=== PATIENT | female | born 1990 | race Hispanic/Latino ===

== ENCOUNTER 2016-08-21 13:16 | Day surgery (SDC) | payer OTHER ==
[~2016-08-21] VITALS: Ht 152.4 cm; Wt 77.8 kg
[2016-08-21] VITALS (9 sets, daily range): BP systolic 113–124; BP diastolic 76–85; PULSE 85–98; RESP 12–22; O2SAT 93–100
[~2016-08-21 13:16] MED LIST: Lactated Ringer's 1,000 ML IV ONE; PRD5T PO
[2016-08-21] MEDS ORDERED: Ondansetron 2 mg/mL 2 mL Inj ONE (13:17)
[2016-08-21] MEDS ORDERED: Ketamine 10 mg/mL 20 mL Inj ONE (13:17)
[2016-08-21] MEDS ORDERED: Succinylcholine Chloride 20 mg/mL 5 mL Inj ONE (13:17)
[2016-08-21] MEDS ORDERED: Propofol 10,000 mCg/mL 20 mL Inj ONE (13:17)
[2016-08-21] MEDS ORDERED: Bupivacaine-MPF 0.5% 30 mL Inj INFILTRATE ONE (18:58)
[2016-08-21] MEDS ORDERED: HYDROcodone-APAP 5-325 mg Tablet PO PRN (19:40)
--- NOTE | 2016-08-21 19:46 | PCM.SURGPO ---
Immediate Operative Note Date of Surgery: Aug 21, 2016 Pre Operative Diagnosis Subcutaneous masses X2 Post Operative Diagnosis Subcutaneous masses X2 Procedure Excision of Subcutaneous masses from Right upper back and front of the chest Surgeon and Mail Handler Equipment Operator Surgeon: Oliver Moreira MD Assistants: Maite Wilkins MS3 Findings Hard Subcutaneous Masses2.5 cm in the back, 2 cm in the front Complications There were no periprocedural complications identified. Surgical Specimen Removed: Yes Specimen sent to Pathology: Yes Surgical Specimen description: Right upper back subcutaneous mass Anterior chest subcutaneous Mass Anesthetic Administered: GA Grafts, Implants: None Output, Estimated Blood Loss: 0 Blood Admin during surgery: No Oliver Moreira MD Aug 21, 2016 19:45
[2016-08-21] MEDS ORDERED: HYDR-4003 PO (19:49)
[2016-08-21] MEDS ORDERED: Lactated Ringer's 500 ML IV PRN (19:59)
[2016-08-21] MEDS ORDERED: Lactated Ringer's 1,000 ML IV SCH (19:59)
--- NOTE | 2016-08-21 19:59 | PCM.HPANE ---
Patient Data Surgeon Admitting Provider: Attending Provider:Oliver Moreira MD Primary Care Physician:Cale Boothe MD Other Provider: Reason for Visit Subcutaneous Mass Ht/WT & BMI Height (Feet): 5 Height (Inches): 0 Weight (Kilograms): 77.8 Body Mass Index 33.00 Allergies Coded Allergies: vancomycin (Verified Allergy, Intermediate, Rash,Itching,, 08/21/16) Past Anesthesia History Anesthesia History: Denies:: Anesthesia Reactions, Difficult Intubation, Fam Anesthesia Reaction Diabetes History Hx Diabetes?: No MRSA MRSA: No Medications Hypertension Medication: No Home Meds Incl Beta [place]: No Active Scripts Hydrocodone-Acetaminophen 5-325 mg 1 Each Tablet1 Tablet PO Q4 PRN For Mild Pain #20 TABLET Prov:Oliver Moreira MD 08/21/16 Reported Medications Prednisone (PredniSONE)5 Mg Tab5 Mg PO DAILY Ref 0 08/18/16 Discontinued Scripts Ciprofloxacin 500 Mg [id number] Mg PO BID #20 TABLET Prov:Mervin Arriaga MD 07/30/16 Azithromycin (Zithromax (Z-Edgardo))250 Mg [id number] Mg PO DIRECTED #6 TABLET Ref 0 Take two tablets by mouth on day 1, then take one tablet daily on days 2 through 5. Prov:Mervin Arriaga MD 07/30/16 History History of ENT Problems?: No HEENT History: Denies:: Cataracts Difficult Intubation Dysphagia Glaucoma Hearing Problem Sinus Problem TMJ Hx of Heart Problems?: Yes Cardiovascular History: Positive for:: Cardiac Surgery (has IVC filter ) Irregular Heartbeat (tachycardia) Denies:: Chest Pain Congestive Heart Failure Edema Heart Murmur (cannot recall) Hypertension Pacemaker Thrombophlebitis Other Cardiac History: IVC filter placed 2007- unable to be removed Hx of Respiratory Problem?: No Respiratory History: Denies:: Asthma COPD Dyspnea Emphysema Oxygen Administration Pneumonia Tuberculosis Use of C-PAP Machine Hx Neurologic Problems?: No Neurological History: Denies:: CVA Dizziness Headaches Multiple Sclerosis Parkinson's Disease Seizures Hx of GI Problems?: Yes Gastrointestinal History: Denies:: Diverticulitis Gastrointestinal Bleeding Heartburn Hepatitis Hiatal Hernia Rectal Bleeding Other GI Pertinent History: total colectomy with ileal pouch, hx of gardners disease Hx of Problems?: No Genitourinary History: Denies:: Kidney Stones Urinary Tract Infection Female Hx: Denies:: Currently Endometriosis Pelvic Inflammatory Problems with Breasts? Skin History: Positive for:: History Skin Disorders? (sub q mass x 2 - current admission problem) Denies:: Pressure Ulcers Hx Musculoskeletal Problems?: No Musculoskeletal History: Denies:: Fibromyalgia Joint Replacement Musculoskeletal Trauma Myasthenia Gravis Osteoarthritis Rheumatoid Arthritis Hx of Psycho/Social Problems?: No Psycho Social History: Positive for:: Anxiety Hx Depression Denies:: Bipolar Disorder Suicide Attempt Hx Surgeries?: Yes (colectomy- with ileal pouch, desmoid tumor resection- hysterectomy) Hx Any Other Health Problems?: Yes Other History: Positive for:: Hospitalization (Pain, tumor, , colectomy, N/V) Denies:: Cancer Endocrine Disease Thyroid Disease History Blood Transfusions: Positive for:: Blood Transfusions Denies:: Blood Transfuse Reaction Hx Diabetes: No Hx Alcohol Use: YesAlcoholic Drinks Per Day: on weekends- 2 drinks weekHx Substance Use: No Smoking Status: Current Every Day Smoker Have You Smoked inLast 12 mo: No Stop/Bang S-Snoring: Do You Snore Loudly: No T-Tired: feel tired, fatigued: No O-Obsered: Observed not breath: No P-Blood Pressure: treated: No B- Body Mass Index > 35 kg/m2: No A- Age over 50: No N- Neck Large Circumference: No G- Gender Male: No LUÍS Total Score: 0 Risk Assessment Category Category 1A: Patient has history of documented sleep apnea, and HAS NOT received any narcotic, sedative or anesthesia administration during this stay. Category 1B: Patient has history of documented sleep apnea, and HAS received any narcotic , sedative or anesthesia administration during this stay Category 2: Patient has SUSPECTED Obstructive Sleep Apnea, and HAS received any narcotic , sedative or anesthesia administration during this stay. Category 3: Patient has SUSPECTED Obstructive Sleep Apnea and HAS NOT received narcotic, sedative or anesthesia administration during this stay. Category 4: Outpatient in Procedural Areas with known sleep apnea or who screen positive for High Risk via the STOP/BANG questionnaire. Exam Exam Vital Signs Vital Signs Date Time Temp Pulse Resp B/P Pulse Ox O2 Delivery O2 Flow Rate FiO2 08/21/16 19:54 98 14 124/79 100 Simple Mask 8 08/21/16 19:46 36.4 88 12 115/79 100 Simple Mask 8 08/21/16 13:41 36.6 95 16 118/79 96 Room Air Meds/Labs/Diagnostics Admission Meds Current Medications Lactated Ringer's (Lr) 1,000 ml @ 120 mls/hr Q8H20M ONCE IV Last administered on 08/21/16 13:37; Start 08/21/16 at 05:00; Stop 08/21/16 at 13:19; Status DC Bupivacaine HCl (Sensorcaine-MPF 0.5% Inj) 30 ml STK-MED ONCE INFILTRATE Last administered on 08/21/16 18:58; Start 08/21/16 at 18:58; Stop 08/21/16 at 19:04 ; Status DC Plan Impression Patient chart reviewed, patient interviewed and anesthestic plan with risks, benefits, and alternatives discussed, and informed consent obtained. NPO Status: 08/20/16 AT 1900 Daren Sheriff MD Aug 21, 2016 19:59
[2016-08-21] MEDS ORDERED: HYDROmorphone 1 mg/mL Inj IVPUSH PRN (20:00)
[2016-08-21] MEDS ORDERED: Ondansetron 2 mg/mL 2 mL Inj IVPUSH PRN (20:00)
[2016-08-21] MEDS ORDERED: EPHEDrine Sulfate 50 mg/mL Inj IVPUSH PRN (20:00)
[2016-08-21] MEDS ORDERED: Phenylephrine 10,000 mCg/mL Inj IVPUSH PRN (20:00)
[2016-08-21] MEDS ORDERED: fentaNYL-PF 50 mCg/mL 2 mL Inj IVPUSH PRN (20:00)
[2016-08-21] MEDS ORDERED: Dexamethasone 4 mg/mL Inj IVPUSH PRN (20:00)
[2016-08-21] MEDS ORDERED: MetoCLOpramide 5 mg/mL 2 mL Inj IVPUSH PRN (20:00)
--- NOTE | 2016-08-21 21:50 | OP ---
[address] [address] OPERATIVE REPORT PATIENT: GORGE ACEVEDO : 1990 MR#: [id number] ADMIT: 08/21/2016 JOB ID: [id number] DATE OF SURGERY: 08/21/2016 SURGEON: Oliver Moreira MD PREOPERATIVE DIAGNOSIS(ES): Subcutaneous masses of the upper back and anterior chest. POSTOPERATIVE DIAGNOSIS(ES): Subcutaneous masses of the upper back and anterior chest. PROCEDURE PERFORMED: Excision of subcutaneous masses of the right upper back and midline chest. TEXTILE BAG SEWER: BRYANT Sinha. 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 She was diagnosed with acute febrile neutrophilic dermatosis in May 2016 leading to a workup looking for a malignancy. Dr. Jeff sent her to me with the finding of subcutaneous mass on the right posterior chest wall found on the CT. She was also feeling similar on the front of the chest between her breasts. After discussing the risks, benefits, and alternatives, she is here today for excision of both these masses under general anesthesia. She 1st underwent smooth induction of general anesthesia, she was then placed in a left lateral decubitus position and the right upper back was prepped and draped in the usual sterile fashion. Surgical time-out was undertaken using safety checklist, and all were in agreement. I then infiltrated the skin over the palpable subcutaneous mass which was marked preoperatively and divided the skin sharply and identified the subcutaneous mass and excised it with a margin of fat all around it. This was approximately 2.5 cm in size. After the mass was excised, it was oriented to marked stitch on the superior aspect and then the skin was closed in layers of 3-0 Vicryl followed by 4-0 Monocryl. Steri-Strips and sterile dressing were applied. The patient was then placed in a supine position and the anterior chest was prepped and draped in the usual sterile fashion. Then, I again infiltrated this site with 0.5% bupivacaine and opened the skin sharply and again dissected this 2 cm subcutaneous mass sharply with the margin of fat surrounding it and again marked it, orienting the stitch on its superior aspect and closed the skin with layers of 3-0 Vicryl followed by 4-0 Monocryl. Again, Steri-Strips and sterile dressing were applied. Patient was recovered from anesthesia and was taken to the recovery room in stable condition.
--- NOTE | 2016-08-22 15:28 | PCM.ANEP1 ---
Post Anesthesia Phase 1 PACU Phase 1 Assessment Date of Service: Aug 21, 2016 Anesthetic Administered: GA Level of Alertness: Sleepy, easy to arouse MOTA's with Equal Strength: Yes Pain: No Nausea or Vomiting: No Airway Device: LMA Oxygen Delivery: Simple Mask Lungs: Clear to Auscultation Daren Sheriff MD Aug 22, 2016 15:28
--- NOTE | 2016-08-22 15:29 | PCM.ANEP2 ---
Post Anesthesia Evaluation ASA/CMS Post Anesthesia VS in Patient's Normal Range?: Yes Resp Stable; Airway Patent?: Yes CV Function & Hydration Stable: Yes Mental Status Recovered?: Yes Pain control Satisfactory?: Yes N/V Control Satisfactory?: Yes Daren Sheriff MD Aug 22, 2016 15:29
--- NOTE | 2016-08-23 14:12 | PATH ---
SURGICAL PATHOLOGY Attending Physician:Oliver Moreira MD CASE STATUS: Signed Out PATIENT NAME: GORGE ACEVEDO PID: [id number] : 1990 DATE COLLECTED:08/21/2016 00:00 SPECIMEN: 1: Mass, NOS 2: Mass, NOS CLINICAL HISTORY: A: RIGHT UPPER BACK SUBCUTANEOUS MASS-STITCH SUPERIOR B: ANTERIOR CHEST SUBCUTANEOUS MASS-STITCH SUPERIOR FINAL DIAGNOSIS: 1.RIGHT UPPER BACK SUBCUTANEOUS MASS: BENIGN EPIDERMAL CYST, NEGATIVE FOR ATYPIA. 2.ANTERIOR CHEST SUBCUTANEOUS MASS: BENIGN EPIDERMAL CYST, NEGATIVE FOR ATYPIA. ICD10 CODE L72.0 GROSS DESCRIPTION: The specimens are received in formalin, labeled with the patient's name, and sublabeled as the following: (1) right upper back subcutaneous mass; (2) anterior chest subcutaneous Mass. (1) The specimen consists of a cyst (1.9 x 1.7 x 1.7 cm) with a minimal amount of attached adipose tissue. A blue suture indicates the superior margin. The cyst is bright white and contains yellow-gao soft paste-like material. The lining is flat with no excrescences identified. The wall is up to 0.3 cm thick. Ink code: black-superior; orange-inferior. Section code: (1A) cyst, serially sectioned, service representative. (2) The specimen consists of a cyst (1.5 x 1.5 x 1.3 cm) with a scant amount of attached adipose tissue. A blue suture indicates the superior margin. The cyst is bright white and contains man-white soft paste-like material. The lining is flat with no excrescences identified. The wall is up to 0.1 cm thick. Ink code: black-superior; orange-inferior. Section code: (2A) cyst, serially sectioned, service representative. 08/22/16 JM MICRO DESCRIPTION: See diagnosis. ICD-9 CODES: CPT CODES: 1: 80264 2: 58560 Electronically Signed Out Kevin Spicer MD [facility] [address] [place] [address] Technical component performed at [facility] [address], [place], [address]
[2016-10-18] MEDS ORDERED: PROM25TA14 PO (16:38)
[2016-10-18] MEDS ORDERED: FLUC100T4 PO (16:38)
[2016-10-18] MEDS ORDERED: OXYC1TAB24 PO (16:38)
[2016-10-18] MEDS ORDERED: PHEN-684 PO (16:38)
== END 2016-08-21 23:59 | disposition home or self-care (01) ==
LOC: SAS 13:16
PROVIDERS: ATTEND Student in an Organized Health Care Education/Training Program
DX: L72.0 Epidermal cyst (principal); D69.2 Other nonthrombocytopenic purpura; Z86.711 Personal history of pulmonary embolism; Z86.718 Personal history of other venous thrombosis and embolism; E66.9 Obesity, unspecified; F17.210 Nicotine dependence, cigarettes, uncomplicated; Z79.52 Long term (current) use of systemic steroids
CPT/HCPCS: 21555; 21930; J0330; J2405; J7120

== ENCOUNTER 2016-09-01 18:28 | Inpatient (IN) | payer OTHER ==
[~2016-09-01] VITALS: Ht 152.4 cm; Wt 80.6 kg
[~2016-09-01 18:28] MED LIST changes: +HYDR-4003 PO; -Lactated Ringer's 1,000 ML IV ONE
[2016-09-01 18:31] VITALS: BP 125/84; PULSE 115; RESP 22; O2SAT 96
--- NOTE | 2016-09-01 18:34 | ED.REPORT ---
HPI-Back Pain Under 40 Date of Service Sep 01, 2016 ED Provider: Conrado Palacio DO A 25 year old female with a history of Shepherd's syndrome, Sweet's syndrome, nephrostomy tube, recent subcutaneous mass removal, and multiple other medical concerns presents to the ED complaining of right flank pain that radiates to her back, right abdomen, and down her right leg. This began this morning and has continued intermittently since. The pain was severe enough at one point that she felt unable to move. She was also experiencing a fever earlier today of 101.1 degrees, which she treated with Tylenol. The pt has been trying to stay hydrated, but has been unable to urinate or have a bowel movement since this morning. Nursing Notes Stated Complaint: R SIDE ABD PAIN Chief Complaint: Back Pain or Injury Nursing Notes Reviewed: Yes Allergies: Coded Allergies: vancomycin (Verified Allergy, Intermediate, Rash,Itching,, 08/21/16) Scheduled Ciprofloxacin (Ciprofloxacin) 500 Mg Tablet 500 MG PO BID Prednisone (PredniSONE) 5 Mg Tab 5 MG PO DAILY Tamsulosin (Flomax) 0.4 Mg Capsule 0.4 MG PO DAILY Scheduled PRN Hydrocodone-Acetaminophen 5-325 mg (Hydrocodone-Acetaminophen 5-325 mg) 1 Each Tablet 1 TABLET PO Q4 PRN PRN For Mild Pain Ibuprofen (Ibuprofen) 800 Mg Tablet 800 MG PO TID PRN PRN For Pain oxyCODONE-Acetaminophen 5-325 mg (oxyCODONE-Acetaminophen 5-325 mg) 1 Each Tablet 1-2 TAB PO Q6H PRN PRN For Pain General Time Seen by MD: 18:34 Chief Complaint Flank pain right Hx Obtained From: Patient Arrived By: Walk-in Sudden in Onset?: Yes Onset Occurred: 9 - 12 hours ago Symptom Duration: Intermittent Recent Healthcare: Recent doctor visit, Recent hospitalization Similar Sx Previous: No Past Medical History Past Medical History 1. 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 2. 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 4. On prior notes it is noted that the patient has a history of hypothyroidism, although the patient currently denies this diagnosis and said she is not on any thyroid replacement medication. 5. Status post hysterectomy. 6. Status post total colectomy with ileal pouch (as noted in the HPI). 7. History of exploratory laparotomy following intra-abdominal hemorrhage. Past Surgical History as above Smoking History Current Every Day Smoker Social History Alcohol Use: Denies alcohol use Other Social History: Good social support, Local resident Ambulatory Status Independent Review of Systems Review of Systems Note: decreased urine and bowel output Constitutional: Reports: Fever Respiratory: Denies: Non-productive cough, Shortness of breath Cardiovascular: Denies: Chest pain GI: Reports: Abdominal pain Female: Reports: Flank pain Musculoskeletal: Reports: Back pain, Extremity pain, Denies: Neck pain Complete sys rev & neg: except as marked. Physical Exam Initial Vital Signs Vital Signs (First) Date Time Temp Pulse Resp B/P Pulse Ox O2 Delivery O2 Flow Rate FiO2 09/01/16 18:31 36.4 115 22 125/84 96 09/01/16 18:55 Room Air Initial VS: Reviewed General/Constitutional: Awake, Alert Back: Atraumatic, Full range of motion right sided CVAT to palpation and percussion Neurologic: Oriented X3, Speech NL, No motor deficits, No sensory deficits Neck: Atraumatic, Supple, Full range of motion Respiratory / Chest: Atraumatic, Breath sounds NL, Breath sounds = bilat, No respiratory distress Cardiovascular: Heart rate NL, Regular rhythm, Heart sounds NL Abdomen: Atraumatic, Soft right sided tenderness to palpation no rebound or guarding Lower Extremity / Pelvis / MS: Atraumatic, Full range of motion Head / Eyes: Atraumatic, Normocephalic, PERRL, EOMI ENT: Atraumatic, Airway patent, Mucous membranes moist Upper Extremity / MS: Atraumatic, Full range of motion Skin: Atraumatic, Color NL, No rash, Warm, Dry surgical scars healing well Psychiatric: Affect NL, Mood NL Interpretation & Diagnostics Interpretation & Diagnostics: Abdomen CT: IMPRESSION: 1. Proximal right ureteral calculus, associated with moderate right hydronephrosis. Dictated by: Hoda Teague M.D. on 09/01/2016 at 20:48 Approved by: Hoda Teague M.D. on 09/01/2016 at 20:52 Lab Results Interpretation Result Diagram: 09/01/16 1850 09/01/16 1850 Test 09/01/16 18:50 09/01/16 20:35 White Blood Count 8.8th/mm3 (3.8-10.1) Red Blood Count 4.76mil/mm3 (3.90-5.20) Hemoglobin 14.9g/dL (12.0-15.6) Hematocrit 43.3% (35.0-46.0) Mean Corpuscular Volume 91.0fL (81-100) Mean Corpuscular Hemoglobin 31.3pg (27.0-35.0) Mean Corpuscular Hemoglobin Concent 34.4% (32.0-37.0) Red Cell Distribution Width 12.4% (12.3-15.4) Platelet Count 152bil/L (150-400) Neutrophils (%) (Auto) 93.2% (40-74) Lymphocytes (%) (Auto) 5.4% (14-46) Monocytes (%) (Auto) 0.6% (4-12) Eosinophils (%) (Auto) 0.3% (0-5) Basophils (%) (Auto) 0.2% (0-3) Sodium Level 139mEq/L (134-144) Potassium Level 3.6mEq/L (3.5-5.2) Chloride Level 103mEq/L (97-108) Carbon Dioxide Level 23mmol/L (18-29) Blood Urea Nitrogen 14mg/dL (6-20) Creatinine 0.89mg/dL (0.57-1.00) Estimat Glomerular Filtration Rate 109mL/min (>59) Glucose Level 112mg/dL (60-99) Lactic Acid Level 1.4mmol/L (0.4-2.0) Calcium Level 9.0mg/dL (8.5-10.1) Magnesium Level 1.8mg/dL (1.6-2.6) Total Bilirubin 0.9mg/dL (0.0-1.2) Aspartate Amino Transf (AST/SGOT) 20U/L (0-50) Alanine Aminotransferase (ALT/SGPT) 19U/L (0-32) Alkaline Phosphatase 88U/L (25-150) Total Protein 7.2g/dL (6.4-8.4) Albumin 4.3g/dL (3.4-5.0) Lipase 25U/L (13-60) Urine Color Yellow (YELLOW) Urine Appearance Hazy (CLEAR,HAZY) Urine pH 5.5 (5.0-8.0) Urine Specific [place] 1.025 (1.003-1.035) Urine Protein Negativemg/dL (NEG,TRACE) Urine Glucose (UA) Negativemg/dL (NEGATIVE) Urine Ketones Negativemg/dL (NEGATIVE) Urine Occult Blood Large (NEGATIVE) Urine Nitrite Positive (NEGATIVE) Urine Bilirubin Negative (NEGATIVE) Urine Urobilinogen Normalmg/dL (NORMAL) Urine Leukocyte Esterase Small (NEGATIVE) Urine RBC 3-10/hpf (0-2) Urine WBC >50/hpf (0-5) Urine Epithelial Cells Many/hpf (NONE-MOD) Urine Crystals None seen (NONE SEEN) Urine Bacteria Many/hpf (NONE-FEW) Urine Hyaline Casts None/lpf (NONE) Urine Granular Casts None seen (NONE SEEN) Urine Waxy Casts None seen (NONE SEEN) Urine Red Blood Cell Casts None seen (NONE SEEN) Urine White Blood Cell Casts None seen (NONE SEEN) Urine Mucus None seen (None Seen) Urine Trichomonas None seen (NONE SEEN) Urine Yeast None (NONE SEEN) Urinalysis Comment None Urine Culture Reflexed Indicated Re-Eval/Medical Decision Med Decision/Clinical Course 25-year-old female with a history of Shepherd syndrome and sweets syndrome presents with right-sided flank pain and right-sided groin pain. She admits to a temperature of 101.5 earlier today but has been afebrile here. Her white blood cell count is normal. Her vitals other than heart rate have been normal. She looks well clinically. She is given 1 L of normal saline while she was here and we offered a second liter but she would like to do this at home by increasing her fluid intake. I discussed her case with Dr. Rodriguez with urology and she feels she does not have a septic stone spite having dirty urine. He recommends beginning empiric antibiotic coverage with Cipro 500 mg twice a day which was started here in the emergency department. He also started Flomax and have treated her with NSAIDs and Dilaudid for pain. She is discharged home with a supply of Percocet, ibuprofen, Flomax, and Cipro. She will follow up with Dr. Rodriguez next week. I let her know there is a 50/50% chance of the stone will pass statistically. Gonzales that if she develops signs of sepsis/infection including fevers or chills she should return to the ER. She is in agreement with this plan. All questions were answered with her and her mother. Source of Hx: Old records Re-Evaluation/Progress #1: Time of Eval: 20:49 Patient Status: Condition improved Re-Evaluation/Progress Note: Pt rechecked, who is resting comfortably. She is informed of her lab results and the plan to wait for urine and scan results. Pt agrees with the plan. Re-Evaluation/Progress #2: Time of Eval: 21:03 Patient Status: Condition improved Re-Evaluation/Progress Note: Pt rechecked, who is comfortable. She is informed of her CT results and diagnosis. Re-Evaluation/Progress #3: Time of Eval: 21:24 Patient Status: Condition improved Re-Evaluation/Progress Note: Pt rechecked and informed of consultation with urology. The plan for discharge was discussed. The pt understands and agrees with the plan. All questions are addressed at this time. Consultation : Referral / Consult Name: Gulshan Rodriguez MD Consulted With: Urology Call Returned at: 21:18 Staff Air Tactical Officer: Agrees with eval, Agrees with plan Note: Consulted with Dr. Rodriguez, urology, regarding pt's case. Dr. Rodriguez does not believe that the stone is infected due to normal vitals. He recommends discharge with Cipro. Counseled Regarding: Diagnosis, Lab results, Need for follow-up, When/why to return to ED Discharge & Departure Impression: Primary Impression: Ureterolithiasis Additional Impression: UTI (urinary tract infection) Urinary tract infection type: acute cystitis Hematuria presence: with hematuria Qualified Code: N30.01 - Acute cystitis with hematuria Disposition: Home All VS Reviewed: Yes Condition: Stable Additional Instructions: Thank you for entrusting us with your care today. Your CT indicates that you have a 5 mm kidney stone on the right side. This stone should pass on its own. Take Flomax daily and take Cipro twice daily as prescribed. Take Percocet and ibuprofen as directed for severe pain. Do not drive, drink alcohol, or consume acetaminophen while taking the Percocet. Follow up with Dr. Rodriguez, urology, next week for further evaluation. Call on Sunday to arrange this appointment. Return to the emergency department if you develop any new or concerning symptoms including fever or chills. Referrals: Cale Boothe MD (PCP) Gulshan Rodriguez MD Scriblily Attestation Portions of this note were transcribed by Joel Baker I, Dr. Palacio personally performed the history, physical exam and medical decision-making; I reviewed and confirmed the accuracy of the information in the transcribed note. Signed by: Wellington Kerr, 09/01/16 and 20:58. copies to: Gulshan Rodriguez MD; Cale Boothe MD, Gary R DO Sep 01, 2016 18:34 JOEL BAKER Sep 01, 2016 18:48
[2016-09-01] MEDS ORDERED: 0.9% Sodium Chloride 1,000 ML IV ONE ×3 (18:46→22:44)
[2016-09-01] MEDS ORDERED: Iohexol 300 mg/mL 30 mL Inj PO ONE (18:50)
[2016-09-01] MEDS ORDERED: Ondansetron 2 mg/mL 2 mL Inj IVPUSH PRN (18:50)
[2016-09-01] MEDS ORDERED: HYDROmorphone 1 mg/mL Inj IVPUSH PRN (18:50)
[2016-09-01 18:55] VITALS: BP 125/84; PULSE 115; RESP 22; O2SAT 96
[2016-09-01 19:03] VITALS: BP 124/75; PULSE 121; RESP 19; O2SAT 99
[2016-09-01 19:07] LABS: BASOPHILS % (AUTO) 0.2 % (0-3); EOSINOPHILS % (AUTO) 0.3 % (0-5); MONOCYTES % (AUTO) 0.6 % (4-12); Mean Corpuscular Hemoglobin 31.3 pg (27.0-35.0); NEUTROPHILS % (AUTO) 93.2 % (40-74); Platelet Count 152 bil/L (150-400)
[2016-09-01 19:36] LABS: Magnesium 1.8 mg/dL (1.6-2.6)
[2016-09-01 20:53] LABS: APPEARANCE,URINE HAZY (CLEAR,HAZY); COLOR,URINE YELLOW (YELLOW); OCCULT BLOOD,URINE LARGE (NEGATIVE); PH,URINE 5.5 (5.0-8.0); UROBILINOGEN,URINE NORMAL (NORMAL)
--- NOTE | 2016-09-01 20:53 | DRSVH ---
PROCEDURE: CT ABDOMEN AND PELVIS WITH CONTRAST ([id number]) INDICATIONS: right sided flank/abdominal pain TECHNIQUE: After the administration of oral and intravenous contrast, 5 mm thick sections acquired from the diap hragms to the symphysis. 5 mm thick coronal and sagittal reformats were performed. For radiation do se reduction, the following was used: automated exposure control, adjustment of mA and/or kV accordi ng to patient size. COMPARISON: [facility], CT, CT NECK CHEST ABD PELVIS W CON, 07/05/2016, 15:21. FINDINGS: Image quality: Excellent. ABDOMEN: Lung bases: Lung bases are clear. Heart size is normal. Solid organs: Liver and spleen are normal in size and enhancement. Gallbladder is within normal ann its. Biliary system is non-dilated. Pancreas enhances normally. No adrenal nodules. Left kidney is normal in size and enhancement. There is mild right renal enlargement and moderate right hydronephro sis. Delayed right renal enhancement is present. There is a 5 mm diameter calculus within the proxima l right ureter, with Hounsfield units of 75. Peritoneum and bowel: Stomach, small bowel, and colon loops are normal in caliber and wall thickness . No free fluid or air. Right lower quadrant ostomy is present. Nodes and vessels: No retroperitoneal or mesenteric adenopathy. Aorta and inferior vena cava are no rmal in caliber. A suprarenal IVC filter is present. Miscellaneous: No ventral hernias. PELVIS: Genitourinary: Bladder wall thickness is normal. Miscellaneous: No inguinal hernias or adenopathy. Bones: No suspicious bony lesions. Benign-appearing sclerotic density within the left sacrum is unch anged. No vertebral body compression fractures. IMPRESSION: 1. Proximal right ureteral calculus, associated with moderate right hydronephrosis. Dictated by: Hoda Teague M.D. on 09/01/2016 at 20:48 Approved by: Hoda Teague M.D. on 09/01/2016 at 20:52
[2016-09-01] MEDS ORDERED: Trimethoprim-Sulfa 160 mg-800 mg Tablet PO ONE (21:15)
[2016-09-01] MEDS ORDERED: _oxyCODONE/APAP 5-325 mg Tablet PO PRN (21:35)
[2016-09-01] MEDS ORDERED: IBUP800T28 PO (21:36)
[2016-09-01] MEDS ORDERED: CIPR-198 PO (21:36)
[2016-09-01] MEDS ORDERED: OXYC1TAB24 PO (21:36)
[2016-09-01] MEDS ORDERED: TAMS0.4C98 PO (21:36)
[2016-09-01] MEDS ORDERED: LORazepam 0.5 mg Tablet PO ONE (21:40)
[2016-09-01] MEDS ORDERED: oxyCODONE-Acetamin 10-325 mg Tablet PO ONE (21:40)
[2016-09-01 22:39] VITALS: BP 133/90; PULSE 130; RESP 16; O2SAT 95
[2016-09-01] MEDS ORDERED: cefTRIAXone Inj 1,000 MG, Lidocaine PF 1% Inj 2.1 ML in Syringe 0 EACH IM ONE (22:45)
[2016-09-01] MEDS ORDERED: cefTRIAXone Inj 1,000 MG in Dextrose 5% Minibag Plus 50 ML IV ONE (23:05)
[2016-09-01] MEDS ORDERED: Alum-Mag Hydrox-Simeth 30 mL Suspension PO PRN (23:05)
[2016-09-01] MEDS ORDERED: Polyethylene Glycol (PEG) 17 Gm Powder PO PRN (23:05)
--- NOTE | 2016-09-01 23:48 | PCM.HPMED ---
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 Patient states that over the past 1-2 months she has had intermittent right sided flank pain. Immediately prior to presentation patient had worsening of right sided flank pain rated as 10+/10 searing pain that radiated to the navel area on the right. CT scan was completed with results of right side ureteral calculus with moderate hydronephrosis. Urology was consulted with plans to treat as an outpatient however before discharge from ED patient had elevated temperature and elevation in heart rate prompting admission with urology consult. ROS positive for lightheadedness, dizziness, right-sided flank pain, temperature prior to presentation of 102F a/w rigors and chills. Review of Systems: complete review of systems obtained. positive as per HPI otherwise negative Allergies Coded Allergies: vancomycin (Verified Allergy, Intermediate, Rash,Itching,, 09/02/16) Home Medications Prednisone, 5 mg daily. Discontinued a week ago. 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 S/p total colectomy with ileal pouch Exploratory laparotomy following intra-abdominal hemorrhage. Family History no family history of nephrolithiasis Social History Hx Alcohol Use: Yes Alcoholic Drinks Per Day: Occasionally Hx Substance Use: No Hx Tobacco Use: No Smoking Status: Current Every Day Smoker Exam Vital Signs Vital Sign - Last Date Time Temp Pulse Resp B/P Pulse Ox O2 Delivery O2 Flow Rate FiO2 09/01/16 22:39 39.1 130 16 133/90 95 Room Air Exam General: Alert, Oriented X3, Cooperative, No acute Distress. Family at bedside Eyes: PERRLA, Scleral Anicteric Mouth: Mouth Normal, Mucous Membranes Moist/[place]. Neck: Supple, no Thyromegaly, trachea central. Chest & Lungs: Clear to auscultation & percussion, No adventitious breath sounds, no crackles, no wheeze Cardiovascular: Normal S1, Normal S2, No Murmurs/Rubs/Gallops, Tach/ reg Rhythm , (No JVD, no edema) Pulses: Radial (present and equal), Dorsalis Pedi (present and equal) Abdomen: Soft, Non-tender, Non-distended, Normoactive bowel tones. Ostomy in place. CVA tenderness right Musculoskeletal: Unremarkable. Normal range of motion, no swollen or erythematous joints Extremities: no edema, no cyanosis, no clubbing. Skin: diffuse circular erythematous patches . Warm and dry, no erythematous areas Neurological: Grossly neurologically intact, has generalized weakness, Normal Speech, Sensation Intact Lymphatic: Lymph nodes Cervical and Axillary not palpable. Lab and Diagnostics Result Diagram: [id number]/[id number] X-Rays, CTs and MRIs Patient Name: GORGE ACEVEDO MR#: [id number] [place] [facility] [place] Phys: Conrado Palacio DO Date of Service: 09/01/16 184 PROCEDURE: CT ABDOMEN AND PELVIS WITH CONTRAST ([id number]) INDICATIONS: right sided flank/abdominal pain TECHNIQUE: After the administration of oral and intravenous contrast, 5 mm thick sections acquired from the diaphragms to the symphysis. 5 mm thick coronal and sagittal reformats were performed. For radiation dose reduction, the following was used : automated exposure control, adjustment of mA and/or kV according to patient size. COMPARISON: [facility], CT, CT NECK CHEST ABD PELVIS W CON, 2015, 15:21. FINDINGS: Image quality: Excellent. ABDOMEN: Lung bases: Lung bases are clear. Heart size is normal. Solid organs: Liver and spleen are normal in size and enhancement. Gallbladder is within normal limits. Biliary system is non-dilated. Pancreas enhances normally. No adrenal nodules. Left kidney is normal in size and enhancement. There is mild right renal enlargement and moderate right hydronephrosis. Delayed right renal enhancement is present. There is a 5 mm diameter calculus within the proximal right ureter, with Hounsfield units of 75. Peritoneum and bowel: Stomach, small bowel, and colon loops are normal in caliber and wall thickness. No free fluid or air. Right lower quadrant ostomy is present. Nodes and vessels: No retroperitoneal or mesenteric adenopathy. Aorta and inferior vena cava are normal in caliber. A suprarenal IVC filter is present. Miscellaneous: No ventral hernias. PELVIS: Genitourinary: Bladder wall thickness is normal. Miscellaneous: No inguinal hernias or adenopathy. Bones: No suspicious bony lesions. Benign-appearing sclerotic density within the left sacrum is unchanged. No vertebral body compression fractures. IMPRESSION: 1. Proximal right ureteral calculus, associated with moderate right hydronephrosis. Dictated by: Hoda Teague M.D. on 09/01/2016 at 20:48 Approved by: Hoda Teague M.D. 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 Sepsis, acute, POA -WBC <12, HR>90, T>38 -secondary to urine source -Tx as below Nephrolithiasis, septic stone, acute, POA -CT scan with stone located in right ureter -ceftriaxone given in ED, cont -urology was consulted, possible stent placement in am -NPO at midnight, mIVF, bolus PRN Elevated blood glucose, acute -no history of diabetes -check hgbA1c Sweets syndrome, chronic -management as per outpatient Shepherd syndrome, chronic -management as per outpatient Lilian Nguyen DO Sep 01, 2016 23:47
[2016-09-02] VITALS (17 sets, daily range): BP systolic 103–123; BP diastolic 68–84; PULSE 100–137; RESP 17–23; O2SAT 94–98
[2016-09-02] MEDS ORDERED: Heparin 5,000 Unit/mL Inj SUBQ SCH (00:30)
[2016-09-02] MEDS: HYDROmorphone 0.5 mg/0.5 mL iSecure Syringe IVPUSH PRN ×7 (00:58→20:01)
[2016-09-02] MEDS: 0.9% Sodium Chloride 1,000 ML IV SCH ×4 (00:58→21:57)
[2016-09-02] MEDS: Sodium Chloride LOK Flush 10 mL Syringe IVFLUSH SCH ×3 (00:58→16:28)
--- NOTE | 2016-09-02 01:16 | NUR ---
Admit Note Pt alert and oriented x3. Pt able to provide H&P answers during admissions. Oriented to room, use of call light and plan of care at this time.
--- NOTE | 2016-09-02 05:14 | NUR ---
Pain Pt oriented x3. Aware of NPO for procedure today. Dilaudid given for right back/flank pain with effectiveness noted/reported. Urine strained without any calculus noted.
[2016-09-02 07:16] LABS: BASOPHILS % (AUTO) 0.1 % (0-3); EOSINOPHILS % (AUTO) 0.2 % (0-5); MONOCYTES % (AUTO) 1.8 % (4-12); Mean Corpuscular Hemoglobin 30.6 pg (27.0-35.0); Mean Corpuscular Volume 91.5 fL (81-100); NEUTROPHILS % (AUTO) 94.1 % (40-74); Platelet Count 130 bil/L (150-400)
[2016-09-02] MEDS ORDERED: cefTRIAXone Inj 1,000 MG in Dextrose 5% Minibag Plus 50 ML IV ONE (07:25)
[2016-09-02] MEDS: Heparin 5,000 Unit/mL Inj SUBQ SCH ×2 (10:06→16:28)
[2016-09-02] MEDS ORDERED: Lactated Ringer's 1,000 ML IV ONE (10:46)
[2016-09-02] MEDS ORDERED: Acetaminophen IV 1,000 MG in IV Premix 1 EACH IV ONE (11:10)
[2016-09-02] MEDS ORDERED: HYDROmorphone 0.5 mg/0.5 mL iSecure Syringe IVPUSH ONE (11:10)
[2016-09-02] MEDS ORDERED: Lactated Ringer's 1,000 ML IV SCH (11:40)
[2016-09-02] MEDS ORDERED: HYDROmorphone 1 mg/mL Inj IVPUSH PRN (11:40)
[2016-09-02] MEDS ORDERED: fentaNYL-PF 50 mCg/mL 2 mL Inj IVPUSH PRN (11:40)
[2016-09-02] MEDS ORDERED: Dexamethasone 4 mg/mL Inj IVPUSH PRN (11:40)
[2016-09-02] MEDS ORDERED: Lactated Ringer's 500 ML IV PRN (11:40)
[2016-09-02] MEDS ORDERED: MetoCLOpramide 5 mg/mL 2 mL Inj IVPUSH PRN (11:40)
[2016-09-02] MEDS ORDERED: Phenylephrine 10,000 mCg/mL Inj IVPUSH PRN (11:40)
[2016-09-02] MEDS ORDERED: Ondansetron 2 mg/mL 2 mL Inj IVPUSH PRN (11:40)
[2016-09-02] MEDS ORDERED: EPHEDrine Sulfate 50 mg/mL Inj IVPUSH PRN (11:40)
--- NOTE | 2016-09-02 11:46 | PCM.HPANE ---
Patient Data Surgeon Admitting Provider:Lilian Nguyen DO Attending Provider:Lilian Nguyen DO Primary Care Physician:Cale Boothe MD Other Provider: Reason for Visit Sepsis, Ureterolithiasis Ht/WT & BMI Height (Feet): 5 Height (Inches): 0.00 Weight (Kilograms): 80.700 Body Mass Index 34.93 Allergies Coded Allergies: vancomycin (Verified Allergy, Intermediate, Rash,Itching,, 09/02/16) Past Anesthesia History Anesthesia History: Denies:: Anesthesia Reactions, Difficult Intubation, Fam Anesthesia Reaction Diabetes History Hx Diabetes?: No Current Bedside Blood Glucose: 88 MRSA MRSA: No Medications Active Scripts Tamsulosin (Flomax)0.4 Mg Capsule0.4 Mg PO DAILY #10 CAPSULE Ref 0 Prov:Conrado Palacio DO 09/01/16 Ibuprofen 800 Mg [id number] Mg PO TID PRN For Pain #30 TABLET Ref 0 Prov:Conrado Palacio DO 09/01/16 oxyCODONE-Acetaminophen 5-325 mg 1 Each Tablet1-2 Tab PO Q6H PRN For Pain #20 TABLET Ref 0 Prov:Conrado Palacio DO 09/01/16 Ciprofloxacin 500 Mg [id number] Mg PO BID #20 TABLET Prov:Conrado Palacio DO 09/01/16 Reported Medications Prednisone (PredniSONE)5 Mg Tab5 Mg PO DAILY Ref 0 08/18/16 Discontinued Scripts Hydrocodone-Acetaminophen 5-325 mg 1 Each Tablet1 Tablet PO Q4 PRN For Mild Pain #20 TABLET Prov:Oliver Moreira MD 08/21/16 History History of ENT Problems?: No HEENT History: Denies:: Cataracts Difficult Intubation Dysphagia Glaucoma Hearing Problem Sinus Problem TMJ Hx of Heart Problems?: Yes Cardiovascular History: Positive for:: Cardiac Surgery (has IVC filter ) Irregular Heartbeat (tachycardia) Denies:: Chest Pain Congestive Heart Failure Edema Heart Murmur Hypertension Pacemaker Thrombophlebitis Other Cardiac History: DVT s/p IVC filter Hx of Respiratory Problem?: No Respiratory History: Denies:: Asthma COPD Chest Surgery Dyspnea Emphysema Hemoptysis Oxygen Administration Pneumonia Tuberculosis Use of C-PAP Machine Hx Neurologic Problems?: No Neurological History: Positive for:: Headaches (migraine) Denies:: Alzheimer's Disease CVA Dementia Dizziness Multiple Sclerosis Parkinson's Disease Seizures Hx of GI Problems?: Yes Gastrointestinal History: Denies:: Diverticulitis Gastroesphageal Reflux Gastrointestinal Bleeding Heartburn Hepatitis Hiatal Hernia Rectal Bleeding Other GI Pertinent History: Ileostomy, Colectomy "[place] Syndrome" Hx of Problems?: No Genitourinary History: Positive for:: Urinary Tract Infection Denies:: HX of Hemodialysis Kidney Stones HX of Peritoneal Dialysis: No Other Pertinent History: Hysterectomy 2008 Female Hx: Denies:: Currently Endometriosis Pelvic Inflammatory Problems with Breasts? Skin History: Positive for:: History Skin Disorders? (sub q mass x 2 - current admission problem) Denies:: Pressure Ulcers Other Skin Pertinent History: Fatty tumor removal Hx Musculoskeletal Problems?: No Musculoskeletal History: Denies:: Back Injury Joint Replacement Musculoskeletal Trauma Hx of Psycho/Social Problems?: Yes Psycho Social History: Positive for:: Anxiety Denies:: Bipolar Disorder Hx Depression Suicide Attempt Hx Surgeries?: Yes (colectomy- with ileal pouch, desmoid tumor resection- hysterectomy) Hx Any Other Health Problems?: Yes Other History: Positive for:: Hospitalization (Pain, tumor, , colectomy, N/V,surgeries ) Thyroid Disease (Hypothyroidism) Denies:: Cancer Endocrine Disease ([employer] syndrome) History Blood Transfusions: Positive for:: Accept Blood Products? Blood Transfusions Denies:: Blood Transfuse Reaction Hx Diabetes: NoBedside Blood Glucose: 88 Other Pertinent History: fatty tumor removed, Nephrostomy Hx Alcohol Use: Yes (weekend every other )Alcoholic Drinks Per Day: OccasionallyHx Substance Use: No Smoking Status: Current Every Day Smoker Have You Smoked inLast 12 mo: NoApprox How Many Cigarettes/day: 1 Stop/Bang Treated for Sleep Apnea?: No Do You Have a CPAP Machine?: No S-Snoring: Do You Snore Loudly: No T-Tired: feel tired, fatigued: No O-Obsered: Observed not breath: No P-Blood Pressure: treated: Yes B- Body Mass Index > 35 kg/m2: No A- Age over 50: No N- Neck Large Circumference: No G- Gender Male: No LUÍS Total Score: 1 Risk Assessment Category Category 1A: Patient has history of documented sleep apnea, and HAS NOT received any narcotic, sedative or anesthesia administration during this stay. Category 1B: Patient has history of documented sleep apnea, and HAS received any narcotic , sedative or anesthesia administration during this stay Category 2: Patient has SUSPECTED Obstructive Sleep Apnea, and HAS received any narcotic , sedative or anesthesia administration during this stay. Category 3: Patient has SUSPECTED Obstructive Sleep Apnea and HAS NOT received narcotic, sedative or anesthesia administration during this stay. Category 4: Outpatient in Procedural Areas with known sleep apnea or who screen positive for High Risk via the STOP/BANG questionnaire. Exam Exam Vital Signs Vital Signs Date Time Temp Pulse Resp B/P Pulse Ox O2 Delivery O2 Flow Rate FiO2 09/02/16 09:43 120 09/02/16 05:30 37.0 106 17 112/71 95 Room Air General Appearance: Alert, Oriented X3, Cooperative HEENT/AIRWAY: MP 2 Lungs: Clear to Auscultation Heart: Exam Unremarkable Meds/Labs/Diagnostics Admission Meds Current Medications Sodium Chloride (Normal Saline) 1,000 ml @ 0 mls/hr Q0M ONCE IV Last administered on 09/01/16 19:05; Start 09/01/16 at 18:46; Stop 09/01/16 at 18:48 ; Status DC Ketorolac Tromethamine (Toradol Inj) 30 mg ONCE ONCE IVPUSH Last administered on 09/01/16 19:05; Start 09/01/16 at 18:50; Stop 09/01/16 at 18:51; Status DC Iohexol (Omnipaque-300 Inj) 9,000 mg ONCE ONCE PO Last administered on 19:05; Start 09/01/16 at 18:50; Stop 09/01/16 at 18:51; Status DC Tamsulosin HCl (Flomax) 0.4 mg ONCE ONCE PO Last administered on 09/01/16 21: 30; Start 09/01/16 at 21:15; Stop 09/01/16 at 21:16; Status DC Ciprofloxacin (Cipro) 500 mg ONCE ONCE PO Last administered on 09/01/16 21:30 ; Start 09/01/16 at 21:25; Stop 09/01/16 at 21:26; Status DC Oxycodone/ Acetaminophen (Percocet 10-325) 1 tab ONCE ONCE PO Last administered on 09/01/16 21:45; Start 09/01/16 at 21:40; Stop 09/01/16 at 21:41 ; Status DC Lorazepam 0.5 mg 0.5 mg ONCE ONCE PO Last administered on 09/01/16 21:45; Start 09/01/16 at 21:40; Stop 09/01/16 at 21:42; Status DC Sodium Chloride 1,000 ml @ 0 mls/hr Q0M ONCE IV Last administered on 23:00; Start 09/01/16 at 22:44; Stop 09/01/16 at 22:51; Status DC Ceftriaxone Sodium/Dextrose/ Water (Rocephin Inj/ D5W Minibag Plus) 50 ml @ 100 mls/hr ONCE ONCE IV Last administered on 09/01/16 23:20; Start 09/01/16 at 23:05; Stop 09/01/16 at 23:34; Status DC Sodium Chloride (Saline Ying Flush) 10 ml YING IVFLUSH Last administered on 00:58; Start 09/02/16 at 00:30 Heparin Sodium (Porcine) 5000 unit 5,000 unit Q8 SUBQ Last administered on 09/02 10:06; Start 09/02/16 at 08:30 Sodium Chloride (Normal Saline) 1,000 ml @ 150 mls/hr Q6H40M IV Last administered on 09/02/16 10:08; Start 09/01/16 at 23:10 Acetaminophen 650 mg 650 mg ONCE ONCE PO Last administered on 09/01/16 23:42 ; Start 09/01/16 at 23:40; Stop 09/01/16 at 23:41; Status DC Lactated Ringer's (Lr) 1,000 ml @ ud STK-MED ONCE IV Last administered on 09/02 10:46; Start 09/02/16 at 10:46; Stop 09/02/16 at 10:50; Status DC Bedside Blood Glucose: 88 Labs Test 09/01/16 18:50 09/01/16 20:35 09/02/16 06:36 Lactic Acid Level 1.4mmol/L (0.4-2.0) Magnesium Level 1.8mg/dL (1.6-2.6) Total Bilirubin 0.9mg/dL (0.0-1.2) Aspartate Amino Transf (AST/SGOT) 20U/L (0-50) Alanine Aminotransferase (ALT/SGPT) 19U/L (0-32) Alkaline Phosphatase 88U/L (25-150) Total Protein 7.2g/dL (6.4-8.4) Albumin 4.3g/dL (3.4-5.0) Lipase 25U/L (13-60) Urine Color Yellow (YELLOW) Urine Appearance Hazy (CLEAR,HAZY) Urine pH 5.5 (5.0-8.0) Urine Specific [place] 1.025 (1.003-1.035) Urine Protein Negativemg/dL (NEG,TRACE) Urine Glucose (UA) Negativemg/dL (NEGATIVE) Urine Ketones Negativemg/dL (NEGATIVE) Urine Occult Blood Large (NEGATIVE) Urine Nitrite Positive (NEGATIVE) Urine Bilirubin Negative (NEGATIVE) Urine Urobilinogen Normalmg/dL (NORMAL) Urine Leukocyte Esterase Small (NEGATIVE) Urine RBC 3-10/hpf (0-2) Urine WBC >50/hpf (0-5) Urine Epithelial Cells Many/hpf (NONE-MOD) Urine Crystals None seen (NONE SEEN) Urine Bacteria Many/hpf (NONE-FEW) Urine Hyaline Casts None/lpf (NONE) Urine Granular Casts None seen (NONE SEEN) Urine Waxy Casts None seen (NONE SEEN) Urine Red Blood Cell Casts None seen (NONE SEEN) Urine White Blood Cell Casts None seen (NONE SEEN) Urine Mucus None seen (None Seen) Urine Trichomonas None seen (NONE SEEN) Urine Yeast None (NONE SEEN) Urinalysis Comment None Urine Culture Reflexed Indicated White Blood Count 15.0th/mm3 (3.8-10.1) Red Blood Count 4.25mil/mm3 (3.90-5.20) Hemoglobin 13.0g/dL (12.0-15.6) Hematocrit 38.9% (35.0-46.0) Mean Corpuscular Volume 91.5fL (81-100) Mean Corpuscular Hemoglobin 30.6pg (27.0-35.0) Mean Corpuscular Hemoglobin Concent 33.4% (32.0-37.0) Red Cell Distribution Width 12.4% (12.3-15.4) Platelet Count 130bil/L (150-400) Neutrophils (%) (Auto) 94.1% (40-74) Lymphocytes (%) (Auto) 3.5% (14-46) Monocytes (%) (Auto) 1.8% (4-12) Eosinophils (%) (Auto) 0.2% (0-5) Basophils (%) (Auto) 0.1% (0-3) Sodium Level 139mEq/L (134-144) Potassium Level 3.7mEq/L (3.5-5.2) Chloride Level 107mEq/L (97-108) Carbon Dioxide Level 19mmol/L (18-29) Blood Urea Nitrogen 10mg/dL (6-20) Creatinine 0.85mg/dL (0.57-1.00) Estimat Glomerular Filtration Rate 115mL/min (>59) Glucose Level 95mg/dL (60-99) Calcium Level 7.7mg/dL (8.5-10.1) Plan Impression Patient chart reviewed, patient interviewed and anesthestic plan with risks, benefits, and alternatives discussed, and informed consent obtained. NPO Status: 08/20/16 AT 1900 ASA Physical Status: ASA3 Severe Disease Anesthetic Plan: GA Bene/Risks/Altern/Consents: Yes HP Complete Prior to Induction: Yes Jose Alberto Carlos MD Sep 02, 2016 11:46
--- NOTE | 2016-09-02 11:53 | NUR ---
Pre Op note- NPO since midnight. Patient complaining of right flank pain. IV Dilaudid given and helpful for discomfort. Temp. spiked to 39.3 C prior to surgery. Dr Rodriguez notified. Patient up to bathroom to void pink colored urine. No stones detected. Report given to surgical nurse.
[2016-09-02] MEDS ORDERED: cefTRIAXone 1,000 mg Inj IM ONE (12:04)
[2016-09-02] MEDS ORDERED: Iopamidol-300 50 mL Inj IV ONE (12:15)
[2016-09-02] MEDS ORDERED: Belladonna Alk-Opium 60 mg Rectal Suppository RECTAL ONE ×2 (12:31→12:34)
--- NOTE | 2016-09-02 12:43 | PCM.SURGPO ---
Immediate Operative Note Date of Surgery: Sep 02, 2016 Pre Operative Diagnosis R ureteral calculus, R hydronephrosis, UTI, sepsis Post Operative Diagnosis R ureteral calculus, R hydronephrosis, UTI, sepsis Procedure Cystoscopy, R ureteral stent placement Surgeon and Filtration Plant Mechanic Surgeon: Gulshan Rodriguez MD Assistants: None Findings Cystoscopy revealed no bladder tumors, lesions, or calculi, B/L ureteral orifices in normal position (in trigone), and possible R ureteral orifice at R dome. Guide wire was passed into R ureteral orifice in trigone and was unable to be passed through distal R ureter secondary to resistance in R distal ureter. Guide wire was able to be passed into R ureteral orifice at R dome ( from likely R ureteral reimplantation), up R ureter, and into R renal pelvis. Cloudy urine was drained from R renal collecting system. R hydronephrosis was seen. R ureteral stent was placed without difficulty. Complications There were no periprocedural complications identified. Surgical Specimen Removed: Yes Specimen sent to Pathology: No Surgical Specimen description: Urine Cx from R kidney Anesthetic Administered: GA Grafts, Implants: Other (22cm x 6F R ureteral JJ stent (no string)) Output, Estimated Blood Loss: <5 Blood Admin during surgery: No Additional information Patient to be transferred back to [facility] [place] when stable. Recommend continuing broad- spectrum IV Abx (Ceftriaxone) and aggressive IVF resuscitation and following labs (including WBC, Cr, lytes, urine Cx, and blood Cx) post-op. Case discussed with hospitalist Dr. Funes. Gulshan Rodriguez MD Sep 02, 2016 12:43
--- NOTE | 2016-09-02 12:53 | CONS ---
[address] [address] CONSULTATION REPORT PATIENT: GORGE ACEVEDO : 1990 MR#: [id number] ADMIT: 09/01/2016 JOB ID: [id number] DATE OF SERVICE: 09/02/2016 CHIEF COMPLAINT: Right ureteral calculus, right hydronephrosis, fever, right back, flank and abdominal pain, and nausea. HISTORY OF PRESENT ILLNESS: I was asked by ED Dr. Conrado Palacio to evaluate this 25-year-old female for right ureteral calculus, right hydronephrosis, fever, nausea, right back, flank and abdominal pain. The patient states she started having right back, right flank and right abdominal pain radiating down the right leg starting approximately two months ago. The patient states that her pain significantly worsened yesterday with significant right back, right flank and right abdominal pain radiating down the right leg. The patient states she developed nausea yesterday. The patient states she had a fever of 101.1 degrees at home yesterday, and the patient states she had chills with no dysuria, mild gross hematuria. Initially on presentation to the emergency department, the patient was afebrile and then developed a fever of 39.1 degrees Celsius. Last night, the patient had a CT scan of the abdomen and pelvis with IV and p.o. contrast showing moderate right hydronephrosis and a 5 mm right proximal ureteral calculus. The patient was admitted by hospitalist Dr. Lilian Nguyen last night and was started on IV fluid hydration, and the patient was given ceftriaxone IV in the emergency department. Since last night, the patient has continued to have right back, right flank and right abdominal pain radiating down the right leg, relieved by Dilaudid IV. The patient reports no prior history of nephrolithiasis. The patient states that approximately eight years ago at [facility] she had bilateral nephrostomy tube placement and also ureteral stent placement. The patient does not remember which side the stent was placed (which was reportedly for ureteral injury at the time that she had a large desmoid tumor, which was resected). The patient has a family history of nephrolithiasis in her mother. PAST MEDICAL HISTORY AND PAST SURGICAL HISTORY: Shepherd syndrome, Sweet syndrome, history of DVT, history of PE status post IVC filter placement, hypothyroidism, status post resection of large desmoid tumor, status post hysterectomy, status post colectomy with ileal pouch, status post exploratory laparotomy for bleeding. MEDICATIONS: HOME MEDICATIONS: Prednisone, which was reportedly stopped one week ago. PRESENT HOSPITAL MEDICATIONS: Ceftriaxone IV, heparin subcu, Dilaudid IV p.r.n., Maalox p.r.n., Zofran p.r.n., Senokot p.r.n., MiraLAX p.r.n. ALLERGIES: To VANCOMYCIN. SOCIAL HISTORY: The patient is a smoker. No alcohol use. FAMILY HISTORY: Positive for history of nephrolithiasis in her mother. REVIEW OF SYSTEMS: Constitutional: Positive for positive for fever. Positive for chills. GI: Positive for nausea. Positive for vomiting. PHYSICAL EXAMINATION: Vital signs: Maximum temperature 39.1 degrees Celsius last night at 10:39 p.m. Temperature presently 37.0 degrees Celsius, heart rate 106, respiratory rate 17, BP 112/71, O2 sat 95% on room air. Voided urine output 600 mL last 8 hour shift. General: Well-developed, well-nourished female in mild distress secondary to pain. HEENT exam: Head normocephalic, atraumatic. Eyes: Extraocular muscles intact. Neck: Supple. Chest: No use of accessory muscles. Nonlabored respirations. No retractions. Abdomen: Soft, nondistended, nontender. No palpable masses. No rebound. No guarding. Ileal pouch ostomy present. Back: Positive for right costovertebral angle tenderness. Skin: Warm and dry. Neurologic exam: Sensation grossly intact to touch. Normal speech. Psychiatric exam: Alert and oriented x3. Normal mood and affect. LABORATORIES: Yesterday, white blood cell count normal at 8.8. Creatinine normal at 0.89. Lactic acid normal at 1.4. Urinalysis 3-10 red blood cells, greater than 50 white blood cells, positive nitrite, small leukocyte esterase. This morning white blood cell count elevated at 15.0, hematocrit 38.9, platelets 130. Sodium 139, potassium 3.7, chloride 107, CO2 of 19, BUN 10, creatinine 0.85, glucose 95. Microbiology: On September 01, 2016, urine culture greater than 100,000 gram-negative rods, probable E. coli, sensitivities pending. Blood cultures pending. IMAGING: CT scan as per HPI. IMPRESSION: 1. Right ureteral calculus, right hydronephrosis with urinary tract infection, fever and sepsis. Risks, benefits and alternatives of surgery, specifically cystoscopy and right ureteral stent placement, were discussed with the patient. All questions were answered. The patient wishes to have surgery as recommended. PLAN: The patient will have surgery, specifically cystoscopy and right ureteral stent placement, this morning. Will continue n.p.o. status. The patient has been n.p.o. since midnight last night. Recommend continuing broad-spectrum IV antibiotics with ceftriaxone. Recommend aggressive IV fluid resuscitation. Recommend following up on urine culture and blood culture results. Recommend following labs including white blood cell count, and creatinine. Recommend straining all urine, and starting Flomax, which I will order. MTDD
--- NOTE | 2016-09-02 12:56 | PCM.ANEP1 ---
Post Anesthesia Phase 1 PACU Phase 1 Assessment Vital Signs Vital Signs Date Time Temp Pulse Resp B/P Pulse Ox O2 Delivery O2 Flow Rate FiO2 09/02/16 12:50 122 23 119/74 98 Room Air 09/02/16 12:45 37.3 131 23 103/73 94 Room Air 09/02/16 09:43 120 09/02/16 08:44 39.3 121 20 123/84 96 Room Air 09/02/16 05:30 37.0 106 17 112/71 95 Room Air Anesthetic Administered: GA Level of Alertness: Awake, talking Pain: Yes Pain Scale Score: 0 Nausea or Vomiting: No Lungs: Clear to Auscultation Dermatome Level: Full Sensation Jose Alberto Carlos MD Sep 02, 2016 12:56
--- NOTE | 2016-09-02 12:58 | PCM.ANEP2 ---
Post Anesthesia Evaluation ASA/CMS Post Anesthesia VS in Patient's Normal Range?: Yes Resp Stable; Airway Patent?: Yes CV Function & Hydration Stable: Yes Mental Status Recovered?: Yes Pain control Satisfactory?: Yes N/V Control Satisfactory?: Yes Jose Alberto Carlos MD Sep 02, 2016 12:58
[2016-09-02] MEDS ORDERED: fentaNYL-PF 50 mCg/mL 2 mL Inj ONE (13:01)
[2016-09-02] MEDS ORDERED: Ondansetron 2 mg/mL 2 mL Inj ONE (13:03)
[2016-09-02] MEDS ORDERED: Propofol 10,000 mCg/mL 20 mL Inj ONE (13:03)
[2016-09-02] MEDS ORDERED: cefTRIAXone 1,000 mg Inj ONE (13:03)
--- NOTE | 2016-09-02 14:57 | NUR ---
Post op note- Patient returned to room from PACU. Alert and oriented. Ambulated to bathroom and voided light red colored urine. No stones in strainer. Complained of lower back and right flank pain. Medicated with Dilaudid 0.5mg IV with good relief. Tele- sinus rhythm 90's.
--- NOTE | 2016-09-02 15:26 | DRSVH ---
PROCEDURE: X-RAY RETROGRADE UROGRAPHY INDICATIONS: C-ARM ASSISTED RIGHT CYSTO AND STENT TECHNIQUE: 3 intra-operative images acquired by the Urology service. COMPARISON: [facility], CT, CT ABD PELVIS W CON, 09/01/2016, 20:16. FINDINGS: These fluoroscopic images were performed for intraoperative localization. On these images , there is a right-sided stent placed, with both ends in their expected locations. Please correlate with intraoperative findings. IMPRESSION: Intraprocedural examination within normal limits. Dictated by: Sebastien Latif M.D. on 09/02/2016 at 14:22 Approved by: Sebastien Latif M.D. on 09/02/2016 at 14:24
[2016-09-02] MEDS ORDERED: Phenazopyridine 97.5 mg Tablet PO PRN (16:45)
--- NOTE | 2016-09-02 16:59 | PCM.PNMED ---
Subjective Date of Service Sep 02, 2016 Subjective says feeling a little better after procedure earlier today. Exam Vital Signs Vital Sign - Last Date Time Temp Pulse Resp B/P Pulse Ox O2 Delivery O2 Flow Rate FiO2 09/02/16 13:15 37.6 111 17 119/80 98 Room Air Intake and Output 09/01/16 09/01/16 09/02/16 Cumulative From/Thru 15:00 23:00 07:00 09/01/16 18:31 - 09/02/16 04:57 Intake Total 1000 ml 1381 ml 2381 ml Output Total 650 ml 650 ml Balance 1000 ml 731 ml 1731 ml Intake Oral 0 ml 0 ml IV Total 1000 ml 1381 ml 2381 ml Output Urine Total 600 ml 600 ml Stool Total 50 ml 50 ml # Bowel Movements 0 0 General: Alert, Cooperative, No Acute Distress Eyes: Scleral Anicteric Mouth: Mucous Membr Moist/[place] Neck: Supple Chest & Lungs: Chest Wall Normal, Clear to auscultation & percussion Cardiovascular: Regular Rate/Rhythm Abdomen: Tender (mostly right CVA), Non-distended, Normoactive bowel tones, Ostomy, Soft Extremities: No cyanosis/clubbing/edma bilat Neurological: Grossly Neurologically Intact, Normal Speech IVs and Medications Medications Reviewed: Medications were reviewed in detail Lab and Diagnostics Result Diagram: 09/02/16 0636 09/02/16 0636 X-Rays, CTs and MRIs Patient Name: GORGE ACEVEDO MR#: [id number] Location: [facility] [place] Ordering Phys: Conrado Palacio DO Date of Service: 09/01/16 1846 PROCEDURE: CT ABDOMEN AND PELVIS WITH CONTRAST ([id number]) INDICATIONS: right sided flank/abdominal pain TECHNIQUE: After the administration of oral and intravenous contrast, 5 mm thick sections acquired from the diaphragms to the symphysis. 5 mm thick coronal and sagittal reformats were performed. For radiation dose reduction, the following was used : automated exposure control, adjustment of mA and/or kV according to patient size. COMPARISON: [facility], CT, CT NECK CHEST ABD PELVIS W CON, 2015, 15:21. FINDINGS: Image quality: Excellent. ABDOMEN: Lung bases: Lung bases are clear. Heart size is normal. Solid organs: Liver and spleen are normal in size and enhancement. Gallbladder is within normal limits. Biliary system is non-dilated. Pancreas enhances normally. No adrenal nodules. Left kidney is normal in size and enhancement. There is mild right renal enlargement and moderate right hydronephrosis. Delayed right renal enhancement is present. There is a 5 mm diameter calculus within the proximal right ureter, with Hounsfield units of 75. Peritoneum and bowel: Stomach, small bowel, and colon loops are normal in caliber and wall thickness. No free fluid or air. Right lower quadrant ostomy is present. Nodes and vessels: No retroperitoneal or mesenteric adenopathy. Aorta and inferior vena cava are normal in caliber. A suprarenal IVC filter is present. Miscellaneous: No ventral hernias. PELVIS: Genitourinary: Bladder wall thickness is normal. Miscellaneous: No inguinal hernias or adenopathy. Bones: No suspicious bony lesions. Benign-appearing sclerotic density within the left sacrum is unchanged. No vertebral body compression fractures. IMPRESSION: 1. Proximal right ureteral calculus, associated with moderate right hydronephrosis. Dictated by: Hoda Teague M.D. on 09/01/2016 at 20:48 Approved by: Hoda Teague M.D. 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 # Acute sepsis ( Leukocytosis, fever, tachycardia) due to urinary tract infection/pyelonephritis and bacteremia, present on admission. ongoing -Tx as below # Nephrolithiasis with associated moderate right hydronephrosis, acute UTI, bacteremia and sepsis, poa - post Cystoscopy and right ureteral stent placement on 09/02/16 - appreciate urology consult. will f/u w/ recs - continue with IV Ceftriaxone - c/w supportive care including pain meds as needed # Acute bacteremia likely from underlying UTI/pyelonephritis - Abx as noted above - f/u final cultures # Sweets' syndrome, chronic. stable. -management as per outpatient # Shepherd Syndrome s/p colectomy. 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 stable - c/w DVT ppx # low dose prednisone use as outpatient. unclear why - verify w/ pt - continue to hold steroid for now given active infection - if become hypotensive consider stress dose steroid Dispo: 2-3 days Gavin Funes Sep 02, 2016 16:59
--- NOTE | 2016-09-02 17:30 | NUR ---
Social Work: Screen D: Per EMR review, pt is a 25 year old female admitted for sepsis, ureterolithiasis. Pt is [employer]. PCP Is Cale Boothe MD. NOK Is Cynthia Nance, mother. Readmit score is not entered at this time. Advanced directives not on file but information provided. Pt lives in [place], she is I at baseline and continues to be I during admission. Per MD reports pt anticipated to require hospitalization for 2-3 more days and currently on IV Abx. A: [place]. 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 SD Russo
[2016-09-02] MEDS: HYDROcodone-APAP 10-325 mg PO PRN (18:26)
[2016-09-02] MEDS: cefTRIAXone 2,000 mg/D5W 50 mL IV Minibag Plus IV SCH ×2 (20:02)
[2016-09-02] MEDS ORDERED: cefTRIAXone Inj 1,000 MG in Dextrose 5% Minibag Plus 50 ML IV SCH (21:00)
--- NOTE | 2016-09-02 22:21 | NUR ---
Pain and Diet patient's having right flank/low back pain throughout shift. Rating 6/10 at worst, tolerable at 4/10. one [place] 10/325 was not very effective in controlling her 6/10 pain, patient requesting IV dilaudid. 0.5mg dilaudid was effective, bring her pain down to a 2/10. Advanced diet to general for dinner. patient able to tolerate without n/v or abdominal pain. But patient only ate about 25% of dinner. when asked, patient stated that "I just couldn't eat any more". continue to monitor pain and PO intake.
[2016-09-03] VITALS: BP 125/91; PULSE 101; RESP 17; O2SAT 98
[2016-09-03] MEDS: Sodium Chloride LOK Flush 10 mL Syringe IVFLUSH SCH ×4 (00:04→23:55)
[2016-09-03] MEDS: Heparin 5,000 Unit/mL Inj SUBQ SCH ×4 (00:05→23:33)
[2016-09-03] MEDS: HYDROmorphone 0.5 mg/0.5 mL iSecure Syringe IVPUSH PRN ×2 (00:07→06:31)
[2016-09-03] MEDS: 0.9% Sodium Chloride 1,000 ML IV SCH ×3 (04:07→23:34)
--- NOTE | 2016-09-03 05:48 | NUR ---
Shift Note Assumed pt care at 2300, pt continues with IVF and IV ABO, adequate urine output throughout night , urine strained, no sediments noted so far, q1hrly checks done throughout night.
[2016-09-03 07:05] LABS: BASOPHILS % (AUTO) 0.2 % (0-3); EOSINOPHILS % (AUTO) 0.6 % (0-5); MONOCYTES % (AUTO) 5.7 % (4-12); Mean Corpuscular Hemoglobin 31.2 pg (27.0-35.0); Mean Corpuscular Volume 91.9 fL (81-100); NEUTROPHILS % (AUTO) 78.8 % (40-74); Platelet Count 106 bil/L (150-400)
[2016-09-03 07:50] VITALS: BP 123/83; PULSE 110; RESP 16; O2SAT 96
[2016-09-03] MEDS: Ondansetron 2 mg/mL 2 mL Inj IVPUSH PRN ×2 (09:02→20:07)
--- NOTE | 2016-09-03 10:12 | PCM.PNSURG ---
Subjective Visit Information: Reason for Visit Sepsis, Ureterolithiasis Surgery/Surgery Date Post-Op Day # Date of Admission: Sep 01, 2016 at 23:24 Hospital Day # Objective Vital Sign- Last 8 Hours Date Time Temp Pulse Resp B/P Pulse Ox O2 Delivery O2 Flow Rate FiO2 09/03/16 07:50 36.8 110 16 123/83 96 Room Air Intake and Output- Last 8 Hour 09/03/16 Cumulative From/Thru 07:00 09/01/16 18:31 - 09/03/16 05:23 Intake Total 1159 ml 6443 ml Output Total 1000 ml 2855 ml Balance 159 ml 3588 ml Intake Oral 350 ml 1190 ml IV Total 809 ml 5253 ml Output Urine Total 850 ml 2650 ml Stool Total 150 ml 200 ml Estimated Blood Loss 5 ml # Bowel Movements 0 Result Diagram: 09/03/16 0615 09/03/16 0615 Gulshan Rodriguez MD Sep 03, 2016 10:12
--- NOTE | 2016-09-03 10:50 | NUR ---
Rounds notified of K3.4. notified that per pt, pt stopped taking her 5mg daily prednisone (for sweet's syndrome per pt), about a week ago "because I felt like it". requests that fluid orders be changed to NS 80ml/hr, good fluid po intake with further encouragement. MD aware of plt level. notified that pt seen this am by surgery/urology - notified of hematuria (expected) and encouraged medication for bladder spasm and po pain meds. Discussed with pt this am the reasoning for switching to po pain med control vs IV.
[2016-09-03] MEDS: HYDROcodone-APAP 10-325 mg PO PRN ×3 (10:58→20:06)
[2016-09-03 12:28] VITALS: BP 127/84; PULSE 99; RESP 16; O2SAT 95
--- NOTE | 2016-09-03 13:53 | PCM.PNSURG ---
Subjective Date of Service: Sep 03, 2016 Date of Service: Sep 03, 2016 Subjective: Patient reports occasional R flank and R abdominal pain (relieved by Dilaudid, significantly improved from pre-op), occasional nausea, no vomiting, tolerating small amounts of PO, no chills, no difficulty voiding, has not seen a stone in the urine. Objective Vital Sign- Last 8 Hours Date Time Temp Pulse Resp B/P Pulse Ox O2 Delivery O2 Flow Rate FiO2 09/03/16 12:28 37.1 99 16 127/84 95 Room Air 09/03/16 07:50 36.8 110 16 123/83 96 Room Air Intake and Output- Last 8 Hour 09/03/16 Cumulative From/Thru 07:00 09/01/16 18:31 - 09/03/16 05:23 Intake Total 1159 ml 6443 ml Output Total 1000 ml 2855 ml Balance 159 ml 3588 ml Intake Oral 350 ml 1190 ml IV Total 809 ml 5253 ml Output Urine Total 850 ml 2650 ml Stool Total 150 ml 200 ml Estimated Blood Loss 5 ml # Bowel Movements 0 Voided urine output: 1200/850ml last 2 hr. shifts General: Alert, Oriented X3, Cooperative, No Acute Distress Neck: Supple Lungs: Normal Air Movement Abdomen: Soft, Non-tender, Non-distended, Other (no rebound or guarding) Neuro: Normal Speech, Sensation Intact Catheters: None Result Diagram: 09/03/1615 09/03/16614 Lab & Micro Results: 09/01/16: urine Cx >100,000 E. coli (keita-sensitive, including to Ceftriaxone and Cipro); blood Cx Gram neg rods (probable E. coli) Assessment & Plan Impression POD #1, s/p cystoscopy and R ureteral stent placement (for R ureteral calculus, R hydronephrosis, UTI, sepsis), afebrile since last night, hemodynamically stable with resolved tachycardia, with labs this AM showing WBC decreased to 9.4 (WNL) and Cr normal at 0.65 Problems: Plan Recommend continuing broad-spectrum Abx (i.e. Ceftriaxone) and IVF resuscitation and following labs (including WBC, Cr, lytes, and blood Cx) Recommend straining all urine and continuing Flomax When patient is stable for discharge from hospital (when she remains afebrile and able to tolerate PO, with pain controlled by PO pain meds), she should be discharged home on PO Abx (i.e. Cipro 500mg Q12h)(to complete a 14-day course), pain meds, Flomax, Ditropan, and Pyridium, with instructions to strain her urine and increase her PO fluid intake (to at least 10-12 8oz. glasses (3 liters ) of fluids per day), and she should follow-up with me in the office in 2 - 2.5 weeks (with a KUB prior to appt.) Please do not hesitate to contact me with any urologic questions or concerns VTE Prophylaxis: Sub-Q Heparin (Unfractionated) Resuscitation Status: CPR: Attempt Resuscitation Gulshan Rodriguez MD Sep 03, 2016 13:53
[2016-09-03] MEDS ORDERED: KCl 20 mEq/100 mL(CENTRAL) 20 MEQ in IV Premix 1 EACH IV ONE (14:25)
[2016-09-03] MEDS ORDERED: Potassium Chloride Inj 20 MEQ in Dextrose 5% 250 ML IV ONE (14:35)
--- NOTE | 2016-09-03 14:39 | PCM.PNMED ---
Subjective Date of Service Sep 03, 2016 Subjective Patient was examined at bedside today. Patient denies any chest pain, shortness of breath. Patient reports abdominal pain on the right and back pain on the right T10-T11 area laterally. Exam Vital Signs Vital Sign - Last Date Time Temp Pulse Resp B/P Pulse Ox O2 Delivery O2 Flow Rate FiO2 09/03/16 12:28 37.1 99 16 127/84 95 Room Air Intake and Output 09/02/16 09/02/16 09/03/16 Cumulative From/Thru 15:00 23:00 07:00 09/01/16 18:31 - 09/03/16 05:23 Intake Total 550 ml 2353 ml 1159 ml 6443 ml Output Total 5 ml 1200 ml 1000 ml 2855 ml Balance 545 ml 1153 ml 159 ml 3588 ml Intake Oral 840 ml 350 ml 1190 ml IV Total 550 ml 1513 ml 809 ml 5253 ml Output Urine Total 1200 ml 850 ml 2650 ml Stool Total 150 ml 200 ml Estimated Blood Loss 5 ml 5 ml # Bowel Movements 0 Exam Physical Exam: GEN: Patient was awake, alert, responding appropriately to questions HEENT: PERRLA, EOMI, Neck soft supple, trachea midline, nomocephalic/atraumatic CV: +S1/S2, RRR, no murmurs auscultated Respiratory: CTAB, no wheezes, rales, rhonchi GI: +bowel sounds x4, soft, compressible, mild TTP on the right upper and lower quadrants, ostomy in place with good output EXT: no c/c/e, multiple bruises on the lower extremities bilaterally Neuro: CN II-XII grossly intact Psych: mood and affect were appropriate IVs and Medications Medications Reviewed: Medications were reviewed in detail Medications Current Medications Ondansetron HCl 4 mg Q15M PRN IVPUSH Last administered on 09/01/16 19:05; Admin Dose 4 MG; Start 09/01/16 at 18:50; Stop 09/01/16 at 23:59; Status DC Hydromorphone HCl 1 mg Q15MIN PRN IVPUSH Last administered on 09/01/16 19:05; Admin Dose 1 MG; Start 09/01/16 at 18:50; Stop 09/02/16 at 06:00; Status DC Oxycodone/ Acetaminophen Dispense 10 tablets Q4H PRN PO; Start 09/01/16 at 21: 35; Stop 03/02/17 at 21:36; Status Cancel Heparin Sodium (Porcine) 5,000 unit Q8 SUBQ; Start 09/02/16 at 00:30; Stop 09/02 at 00:30; Status DC Al Hydrox/Mg Hydrox/Simethicone 30 ml Q6H PRN PO; Start 09/01/16 at 23:05 Ondansetron HCl 4-8 mg Q4H PRN IVPUSH Last administered on 09/03/16 09:02; Admin Dose 4 MG; Start 09/01/16 at 23:05 Senna 17.2 mg BID PRN PO; Start 09/01/16 at 23:05 Polyethylene Glycol 17 gm DAILY PRN PO; Start 09/01/16 at 23:05 Sodium Chloride 10 ml JORGE IVFLUSH Last administered on 09/03/16 00:04; Admin Dose 10 ML; Start 09/02/16 at 00:30 Heparin Sodium (Porcine) 5,000 unit Q8 SUBQ Last administered on 09/03/16 08:18 ; Admin Dose 5,000 UNIT; Start 09/02/16 at 08:30 Hydromorphone HCl 0.5 mg 0.5 mg Q4H PRN IVPUSH Last administered on 09/03/16 06:31; Admin Dose 0.5 MG; Start 09/01/16 at 23:10 Sodium Chloride 1,000 ml @ 80 mls/hr [id number] IV Last administered on 09/03/16 11:55; Admin Dose 80 MLS/HR; Start 09/01/16 at 23:10 Ceftriaxone Sodium 1000 mg/ Dextrose/Water 50 ml @ 100 mls/hr Q24H IV; Start at 21:00; Stop 09/02/16 at 21:00; Status DC Ceftriaxone Sodium 2000 mg/ Dextrose/Water 50 ml @ 100 mls/hr Q24H IV Last administered on 09/02/16 20:02; Admin Dose 100 MLS/HR; Start 09/02/16 at 21:00 Lactated Ringer's 1,000 ml @ 120 mls/hr Q8H20M IV; Start 09/02/16 at 11:40; Stop 09/02/16 at 13:18; Status DC Ephedrine Systolic SBP below 90 ... Q2MIN PRN IVPUSH; Start 09/02/16 at 11:40; Stop 09/02/16 at 13:18; Status DC Phenylephrine HCl Systolic BP below 90 ... ONCE PRN IVPUSH; Start 09/02/16 at 11:40; Stop 09/02/16 at 13:18; Status DC Lactated Ringer's 500 ml @ 0 mls/hr Q0M PRN IV; Start 09/02/16 at 11:40; Stop at 13:18; Status DC Fentanyl Citrate 25-50 mcg IV every 5 min p... Q5MIN PRN IVPUSH; Start at 11:40; Stop 09/02/16 at 13:18; Status DC Morphine Sulfate 1-4 mg IV every 5 min p... Q5MIN PRN IVPUSH; Start 09/02/16 at 11:40; Stop 09/02/16 at 13:18; Status DC Hydromorphone HCl 0.2-1 mg IV every 5 min p... Q5MIN PRN IVPUSH; Start at 11:40; Stop 09/02/16 at 13:19; Status DC Meperidine HCl 12.5-25 mg IV every 5 min p... Q5MIN PRN IVPUSH; Start 09/02/16 at 11:40; Stop 09/02/16 at 13:19; Status DC Diphenhydramine HCl 12.5-50 mg IV prn itchi... Q30MIN PRN IVPUSH; Start at 11:40; Stop 09/02/16 at 13:19; Status DC Dexamethasone Sodium Phosphate 4 mg ONCE PRN IVPUSH; Start 09/02/16 at 11:40; Stop 09/02/16 at 13:19; Status DC Metoclopramide HCl 10 mg Q10MIN PRN IVPUSH; Start 09/02/16 at 11:40; Stop 09/02 at 13:19; Status DC Ondansetron HCl 4-8 mg IV every 4 hours ... Q4H PRN IVPUSH; Start 09/02/16 at 11:40; Stop 09/02/16 at 13:19; Status DC Midazolam HCl 0.5-1 mg IV every 5 min p... Q5MIN PRN IVPUSH; Start 09/02/16 at 11:40; Stop 09/02/16 at 13:19; Status DC Oxybutynin Chloride 5 mg TID PRN PO Last administered on 09/03/16 12:33; Admin Dose 5 MG; Start 09/02/16 at 16:45 Phenazopyridine HCl 2 tab TID PRN PO; Start 09/02/16 at 16:45 Acetaminophen 650 mg Q4H PRN PO Last administered on 09/03/16 00:36; Admin Dose 650 MG; Start 09/02/16 at 16:45 Docusate Sodium 100 mg TID PO Last administered on 09/03/16 08:17; Admin Dose 100 MG; Start 09/02/16 at 20:30 Tamsulosin HCl 0.4 mg DAILY PO Last administered on 09/03/16 08:17; Admin Dose 0.4 MG; Start 09/03/16 at 08:30 Acetaminophen/ Hydrocodone Bitart 1-2 TABLETS Q4H PRN PO Last administered on 10:58; Admin Dose 1 TABLET; Start 09/02/16 at 16:50 Lab and Diagnostics Result Diagram: 09/03/1615 09/03/16 0615 X-Rays, CTs and MRIs Patient Name: GORGE ACEVEDO MR#: [id number] Location: [facility] – [place] Ordering Phys: Conrado Palacio DO Date of Service: 09/01/161845 PROCEDURE: CT ABDOMEN AND PELVIS WITH CONTRAST ([id number]) INDICATIONS: right sided flank/abdominal pain TECHNIQUE: After the administration of oral and intravenous contrast, 5 mm thick sections acquired from the diaphragms to the symphysis. 5 mm thick coronal and sagittal reformats were performed. For radiation dose reduction, the following was used : automated exposure control, adjustment of mA and/or kV according to patient size. COMPARISON: Merged [facility], CT, CT NECK CHEST ABD PELVIS W CON, 2015, 15:21. FINDINGS: Image quality: Excellent. ABDOMEN: Lung bases: Lung bases are clear. Heart size is normal. Solid organs: Liver and spleen are normal in size and enhancement. Gallbladder is within normal limits. Biliary system is non-dilated. Pancreas enhances normally. No adrenal nodules. Left kidney is normal in size and enhancement. There is mild right renal enlargement and moderate right hydronephrosis. Delayed right renal enhancement is present. There is a 5 mm diameter calculus within the proximal right ureter, with Hounsfield units of 75. Peritoneum and bowel: Stomach, small bowel, and colon loops are normal in caliber and wall thickness. No free fluid or air. Right lower quadrant ostomy is present. Nodes and vessels: No retroperitoneal or mesenteric adenopathy. Aorta and inferior vena cava are normal in caliber. A suprarenal IVC filter is present. Miscellaneous: No ventral hernias. PELVIS: Genitourinary: Bladder wall thickness is normal. Miscellaneous: No inguinal hernias or adenopathy. Bones: No suspicious bony lesions. Benign-appearing sclerotic density within the left sacrum is unchanged. No vertebral body compression fractures. IMPRESSION: 1. Proximal right ureteral calculus, associated with moderate right hydronephrosis. Dictated by: Hoda Teague M.D. on 09/01/2016 at 20:48 Approved by: Hoda Teague M.D. 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 Acute sepsis ( Leukocytosis, fever, tachycardia) due to urinary tract infection/ pyelonephritis and bacteremia, present on admission. ongoing -Tx as below -Leukocytosis resolving patient's white blood cell count is 9.4 yesterday was 15.0 -We will continue to monitor Nephrolithiasis with associated moderate right hydronephrosis, acute UTI, bacteremia and sepsis, poa - post Cystoscopy and right ureteral stent placement on 09/02/16 - appreciate urology consult. will f/u w/ recs - continue with IV Ceftriaxone - c/w supportive care including pain meds as needed - Urology following. Acute bacteremia likely from underlying UTI/pyelonephritis - Continue Abx as noted above - Urine culture positive for Escherichia coli, blood cultures positive for gram negatives rods consistent with Escherichia coli sensitive to Cipro Hypokalemia -Potassium 3.4 -Repleted with 20 mEq -We will continue to monitor Hypocalcemia (resolving) -Yesterday calcium was 7.7 today is 8.0 -Continue calcium carbonate chews with meals - We will continue to monitor Sweets' syndrome, chronic. stable. -management as per outpatient patient was taking prednisone chronically however she weaned herself down from 60 mg to 5 mg daily and has not been taking the prednisone for the last few days. Patient is currently stable but will consider adding a stress dose steroids if patient becomes hypotensive . Shepherd Syndrome s/p colectomy. 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 stable - c/w DVT ppx Dispo: Urology performed a right ureteral stent. Once patient is stabilized she should be discharged home with a course of Cipro 500 mg twice a day for 14 days, pain meds, Flomax, Ditropan, and iridium with the instructions to strain her urine and increase her by mouth fluid intake at least 10-12 8 ounce glasses per day and she should follow up in the office to determine a half weeks and should obtain a KUB prior to this appointment with Dr. Gulshan Rodriguez will reassess the patient's in the morning if she is clinically stable she may be able to be discharged within the next 1-2 days. VTE Prophylaxis: Sub-Q Heparin (Unfractionated) Resuscitation Status: CPR: Attempt Resuscitation Time spent Greater than 35 minutes Henrietta Olmedo DO Sep 03, 2016 14:39
[2016-09-03] MEDS: cefTRIAXone 2,000 mg/D5W 50 mL IV Minibag Plus IV SCH ×2 (20:07)
[2016-09-03 20:12] VITALS: BP 130/88; PULSE 89; RESP 16; O2SAT 99
[2016-09-03] MEDS ORDERED: diphenhydrAMINE 25 mg Capsule PO ONE (23:20)
[2016-09-04 00:12] VITALS: BP 111/73; PULSE 76; RESP 17; O2SAT 95
[2016-09-04 04:14] VITALS: BP 125/85; PULSE 82; RESP 16; O2SAT 96
[2016-09-04] MEDS: HYDROcodone-APAP 10-325 mg PO PRN (04:34)
--- NOTE | 2016-09-04 05:55 | NUR ---
Shift Note Assumed pt care at 1900, pt continues with IVF and intermittent IV ABO, flank pain managed with PO [place], so far no breakthrough pains, pt continues to have blood tinged urine, voided 2000mls tonight, q1 checks done throughout night.
[2016-09-04 07:31] LABS: Mean Corpuscular Hemoglobin 30.4 pg (27.0-35.0); Mean Corpuscular Volume 90.2 fL (81-100)
[2016-09-04] MEDS ORDERED: KCl 40 mEq/D5W 500 mL 40 MEQ in IV Premix 1 EACH IV ONE (08:10)
[2016-09-04 08:15] VITALS: BP 113/72; PULSE 82; RESP 12; O2SAT 95
[2016-09-04] MEDS: Sodium Chloride LOK Flush 10 mL Syringe IVFLUSH SCH (08:20)
[2016-09-04] MEDS: Heparin 5,000 Unit/mL Inj SUBQ SCH (08:20)
[2016-09-04] MEDS: Ondansetron 2 mg/mL 2 mL Inj IVPUSH PRN (10:54)
--- NOTE | 2016-09-04 11:39 | NUR ---
Rounds 1040 notified that pt having nausea with breakfast. Given zofran and will monitor to determine if pt is able to tolerate a meal. Otherwise no complaints. Pain well controlled, encouraging fluids. Educated on measuring ostomy output. Addendum: 09/04/16 at 1315 by CARSON CALDERON RN Pt able to have fruit on breakfast tray post zofran. Will order lunch and determine how well she tolerates
[2016-09-04 12:15] VITALS: BP 122/86; PULSE 84; RESP 15; O2SAT 95
[2016-09-04] MEDS: 0.9% Sodium Chloride 1,000 ML IV SCH (13:40)
--- NOTE | 2016-09-04 13:50 | NUR ---
GI MD notified that pt has some mild nausea with meals. Able to tolerate 1/2 a quesadilla for lunch. MD feels pt is ready for dc today, pt agrees with plan.
--- NOTE | 2016-09-04 14:46 | NUR ---
Social Work Note Discharge Note: D/A: SW met with Pt and mother at bedside to discuss discharge planning. Pt to return home on oral antibiotics. Per nursing, Pt has been up in room independent. Pt to be discharge home today with no anticipated needs. All updated and agreeable to plan. P: Pt to be discharged home with mother providing POV transportation. No needs anticipated. All updated and agreeable to plan. Jessica Romeo ADJUNCT ART HISTORY INSTRUCTOR [employer] Fre[employer] And Passenger Agent Stefania Paz MSW
--- NOTE | 2016-09-04 14:51 | PCM.DIMED ---
Discharge Instructions Date of Service Sep 04, 2016 Dates of Hospitalization Sep 01, 2016 at 23:24 Discharge Diagnosis Discharge Diagnosis Nephrolithiasis with moderate hydronephrosis Sepsis secondary to UTI/pyelonephritis Hypokalemia Hypocalcemia Sweet's syndrome Shepherd syndrome Medication Instructions Please take the Zofran 20 minutes prior to eating until your nausea resolves Diet No restrictions Activity Other (gradually return to normal daily activities as tolerated) Call your provider Fever or Chills, Shortness of breath, Bleeding, Chest pain, Vomitting, Excessive diarrhea Patient Instructions Follow-up Provider: Cale Boothe MD Follow-up with PCP in: 1 week (if a follow-up appointment has not been made please call the office and make an appointment) Provider: Gulshan Rodriguez MD Follow-up in: 2 weeks (if a follow-up appointment has not been made please call the office and make an appointment. You should also be scheduled to have a KUB prior to this appointment please call the office and they will arrange this for you) Additional Information At this time you recently had a surgical procedure and are still having nephrolithiasis and should rest and take it easy for the next few days. You may return to work on 09/11/2016. Henrietta Olmedo DO Sep 04, 2016 14:51
[2016-09-04] MEDS ORDERED: TAMS0.4C98 PO (15:11)
[2016-09-04] MEDS ORDERED: OXYC1TAB24 PO (15:11)
[2016-09-04] MEDS ORDERED: CIPR-198 PO (15:11)
[2016-09-04] MEDS ORDERED: CALC500T53 PO (15:11)
[2016-09-04] MEDS ORDERED: PHEN97.5 PO (15:11)
[2016-09-04] MEDS ORDERED: ZOF8 PO (15:13)
[2016-09-04] MEDS ORDERED: OXYB5TAB10 PO (15:16)
--- NOTE | 2016-09-04 15:26 | PCM.DC.MED ---
Discharge Summary Date of Service Sep 04, 2016 Dates of Hospitalization Date of Hospital Admission Sep 01, 2016 at 23:24 Date of Discharge: Sep 04, 2016 Providers: Admitting Physician: Lilian Nguyen DO Primary Care Physician: Cale Boothe MD Attending Physician: Lilian Nguyen DO Diagnosis at Time of Discharge Diagnosis at Time of Discharge Nephrolithiasis with moderate hydronephrosis Sepsis secondary to UTI/pyelonephritis Hypokalemia Hypocalcemia Sweet's syndrome Shepherd syndrome Consultations Urology Dr. Gulshan Rodriguez. Procedures XRay, CTs & MRIs Patient Name: GORGE ACEVEDO MR#: [id number] Location: [facility] [place] Ordering Phys: Conrado Og Date of Service: 09/01/16 1846 PROCEDURE: CT ABDOMEN AND PELVIS WITH CONTRAST ([id number]) INDICATIONS: right sided flank/abdominal pain TECHNIQUE: After the administration of oral and intravenous contrast, 5 mm thick sections acquired from the diaphragms to the symphysis. 5 mm thick coronal and sagittal reformats were performed. For radiation dose reduction, the following was used : automated exposure control, adjustment of mA and/or kV according to patient size. COMPARISON: [facility], CT, CT NECK CHEST ABD PELVIS W CON, 2015, 15:21. FINDINGS: Image quality: Excellent. ABDOMEN: Lung bases: Lung bases are clear. Heart size is normal. Solid organs: Liver and spleen are normal in size and enhancement. Gallbladder is within normal limits. Biliary system is non-dilated. Pancreas enhances normally. No adrenal nodules. Left kidney is normal in size and enhancement. There is mild right renal enlargement and moderate right hydronephrosis. Delayed right renal enhancement is present. There is a 5 mm diameter calculus within the proximal right ureter, with Hounsfield units of 75. Peritoneum and bowel: Stomach, small bowel, and colon loops are normal in caliber and wall thickness. No free fluid or air. Right lower quadrant ostomy is present. Nodes and vessels: No retroperitoneal or mesenteric adenopathy. Aorta and inferior vena cava are normal in caliber. A suprarenal IVC filter is present. Miscellaneous: No ventral hernias. PELVIS: Genitourinary: Bladder wall thickness is normal. Miscellaneous: No inguinal hernias or adenopathy. Bones: No suspicious bony lesions. Benign-appearing sclerotic density within the left sacrum is unchanged. No vertebral body compression fractures. IMPRESSION: 1. Proximal right ureteral calculus, associated with moderate right hydronephrosis. Dictated by: Hoda Teague M.D. on 09/01/2016 at 20:48 Approved by: Hoda Teague M.D. 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 Patient states that over the past 1-2 months she has had intermittent right sided flank pain. Immediately prior to presentation patient had worsening of right sided flank pain rated as 10+/10 searing pain that radiated to the navel area on the right. CT scan was completed with results of right side ureteral calculus with moderate hydronephrosis. Urology was consulted with plans to treat as an outpatient however before discharge from ED patient had elevated temperature and elevation in heart rate prompting admission with urology consult. ROS positive for lightheadedness, dizziness, right-sided flank pain, temperature prior to presentation of 102F a/w rigors and chills. 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 The patient was found to have pyelonephritis secondary to nephrolithiasis with moderate right hydronephrosis. The patient was treated with antibiotics Rocephin daily and the patient's leukocytosis improved. The patient was seen by urology who performed a right ureteral stent. Patient will be discharged home with a ten-day course of Ciprofloxacillin 500 mg twice a day, and she will continue Flomax, Ditropan, Percocet, and Pyridium. Patient was instructed to increase her daily water intake and to continue straining her urine for the stone. Patient will be discharged home today and will follow up with her primary care in 1 week and and follow-up with Dr. Rodriguez with urology in 2-1/2 weeks. Patient should have a KUB prior to this appointment. Dr. Rodriguez's office will be coordinating this. While present the patient did also have hypokalemia, hypocalcemia which have resolved. The patient was taking prednisone for her sweets syndrome however the patient self weaned herself from the prednisone and it was not continued while here in the hospital. The patient has not had any hypotension or adrenergic stress to indicate the need for any rescue steroids. Exam Vital Signs (Last) Date Time Temp Pulse Resp B/P Pulse Ox O2 Delivery O2 Flow Rate FiO2 09/04/16 08:15 36.9 82 12 113/72 95 Room Air Exam GEN: Patient was awake, alert, responding appropriately to questions HEENT: PERRLA, EOMI, Neck soft supple, trachea midline, nomocephalic/atraumatic CV: +S1/S2, RRR, no murmurs auscultated Respiratory: CTAB, no wheezes, rales, rhonchi GI: +bowel sounds x4, soft, compressible, mild TTP on the right upper and lower quadrants, ostomy in place with good output EXT: no c/c/e, multiple bruises on the lower extremities bilaterally Neuro: CN II-XII grossly intact Psych: mood and affect were appropriate Test 09/01/16 18:50 09/01/16 20:35 09/03/16 06:15 09/04/16 06:10 Lactic Acid Level 1.4mmol/L (0.4-2.0) Magnesium Level 1.8mg/dL (1.6-2.6) Lipase 25U/L (13-60) Urine Color Yellow (YELLOW) Urine Appearance Hazy (CLEAR,HAZY) Urine pH 5.5 (5.0-8.0) Urine Specific [place] 1.025 (1.003-1.035) Urine Protein Negativemg/dL (NEG,TRACE) Urine Glucose (UA) Negativemg/dL (NEGATIVE) Urine Ketones Negativemg/dL (NEGATIVE) Urine Occult Blood Large (NEGATIVE) Urine Nitrite Positive (NEGATIVE) Urine Bilirubin Negative (NEGATIVE) Urine Urobilinogen Normalmg/dL (NORMAL) Urine Leukocyte Esterase Small (NEGATIVE) Urine RBC 3-10/hpf (0-2) Urine WBC >50/hpf (0-5) Urine Epithelial Cells Many/hpf (NONE-MOD) Urine Crystals None seen (NONE SEEN) Urine Bacteria Many/hpf (NONE-FEW) Urine Hyaline Casts None/lpf (NONE) Urine Granular Casts None seen (NONE SEEN) Urine Waxy Casts None seen (NONE SEEN) Urine Red Blood Cell Casts None seen (NONE SEEN) Urine White Blood Cell Casts None seen (NONE SEEN) Urine Mucus None seen (None Seen) Urine Trichomonas None seen (NONE SEEN) Urine Yeast None (NONE SEEN) Urinalysis Comment None Urine Culture Reflexed Indicated Neutrophils (%) (Auto) 78.8% (40-74) Lymphocytes (%) (Auto) 14.6% (14-46) Monocytes (%) (Auto) 5.7% (4-12) Eosinophils (%) (Auto) 0.6% (0-5) Basophils (%) (Auto) 0.2% (0-3) White Blood Count 7.2th/mm3 (3.8-10.1) Red Blood Count 3.88mil/mm3 (3.90-5.20) Hemoglobin 11.8g/dL (12.0-15.6) Hematocrit 35.0% (35.0-46.0) Mean Corpuscular Volume 90.2fL (81-100) Mean Corpuscular Hemoglobin 30.4pg (27.0-35.0) Mean Corpuscular Hemoglobin Concent 33.7% (32.0-37.0) Red Cell Distribution Width 11.8% (12.3-15.4) Platelet Count 121bil/L (150-400) Sodium Level 142mEq/L (134-144) Potassium Level 3.2mEq/L (3.5-5.2) Chloride Level 105mEq/L (97-108) Carbon Dioxide Level 24mmol/L (18-29) Blood Urea Nitrogen 3mg/dL (6-20) Creatinine 0.59mg/dL (0.57-1.00) Estimat Glomerular Filtration Rate 175mL/min (>59) Glucose Level 93mg/dL (60-99) Calcium Level 8.0mg/dL (8.5-10.1) Total Bilirubin 0.4mg/dL (0.0-1.2) Aspartate Amino Transf (AST/SGOT) 14U/L (0-50) Alanine Aminotransferase (ALT/SGPT) 12U/L (0-32) Alkaline Phosphatase 79U/L (25-150) Total Protein 5.2g/dL (6.4-8.4) Albumin 2.9g/dL (3.4-5.0) Discharge Medications Discharge Medications Calcium Carbonate (Calcium Carbonate) 200 Mg Tab.chew 500 MG PO TIDWM Prescribed by: FLIP GILMORE DO Ciprofloxacin (Ciprofloxacin) 500 Mg Tablet 500 MG PO BID Prescribed by: FLIP GILMORE DO Oxybutynin Chloride (Oxybutynin Chloride) 5 Mg Tablet 5 MG PO TID Prescribed by: FLIP GILMORE DO Tamsulosin (Flomax) 0.4 Mg Capsule 0.4 MG PO DAILY Prescribed by: FLIP GILMORE DO As needed Ibuprofen (Ibuprofen) 800 Mg Tablet 800 MG PO TID PRN PRN For Pain Prescribed by: CONRADO OG DO Ondansetron (Zofran) 8 Mg Tablet 8 MG PO Q4H PRN PRN For Nausea Prescribed by: FLIP GILMORE DO Phenazopyridine (Azo Standard) 97.5 Mg Tablet 2 TAB PO TID PRN PRN PAIN WITH URINATION Prescribed by: FLIP GILMORE DO oxyCODONE-Acetaminophen 5-325 mg (oxyCODONE-Acetaminophen 5-325 mg) 1 Each Tablet 1-2 TAB PO Q6H PRN PRN For Pain Prescribed by: FLIP GILMORE DO Additional med instructions Please take the Zofran 20 minutes prior to eating until your nausea resolves Followup Plan Disposition: Home in stable condition Discharge Diet: No restrictions Discharge Activity: Other (gradually return to normal daily activities as tolerated) Follow-up Provider: Cale Boothe MD Follow-up with PCP in: 1 week (if a follow-up appointment has not been made please call the office and make an appointment) Provider: Gulshan Rodriguez MD Follow-up in: 2 weeks (if a follow-up appointment has not been made please call the office and make an appointment. You should also be scheduled to have a KUB prior to this appointment please call the office and they will arrange this for you) Time spent Greater than 35 minutes copies to: Gulshan Rodriguez MD; Cale Boothe MD, Precious L DO Sep 04, 2016 15:25
--- NOTE | 2016-09-04 15:36 | PCM.PROC ---
Procedure Note Date of Service: Sep 04, 2016 Procedure: Procedure: Osteopathic Manipulative Treatment Subjective: Patient is currently complaining of right-sided low back pain as well as abdominal pain possibly secondary to her nephrolithiasis. Patient describes the pain as dull and aching. The pain is well controlled when she is not moving however soon as she moves this and states the pain. The patient's pain that she is describing seems mostly viscerosomatic in nature. Risks and benefits of OMT were explained to the patient and verbal consent obtained. Osteopathic Structural Exam: Thoracics: T10 to T12 hypertonicity on the right paraspinally Lumbars: L1 to L2 paraspinal muscle hypertonicity on the right Abdomen: Right-sided diaphragm restriction Ribs: Rib 10 and inhaled on the right Patient responded well to treatment. Patient stated that her pain had decreased in what seemed to be more manageable. The patient's pain was most likely secondary to the nephrolithiasis as the patient's tender points all coincided with the kidney and ureteral viscerosomatic points. Osteopathic treatment modalities used: Myofascial release, BLT, and soft tissue technique Henrietta Olmedo DO Sep 04, 2016 15:36
--- NOTE | 2016-09-04 16:05 | NUR ---
Discharge Pt dc'd ambulatory per request with mom and RN at 1600. All discharge instructions reviewed and pt verbalized understanding. All belongings with pt. IV dc'd intact.
--- NOTE | 2016-09-05 01:15 | OP ---
[address] [address] OPERATIVE REPORT PATIENT: GORGE ACEVEDO : 1990 MR#: [id number] ADMIT: 09/01/2016 JOB ID: [id number] DATE OF SURGERY: 09/02/2016 PREOPERATIVE DIAGNOSIS(ES): 1. Right ureteral calculus. 2. Right hydronephrosis. 3. Urinary tract infection. 4. Sepsis. POSTOPERATIVE DIAGNOSIS(ES): 1. Right ureteral calculus. 2. Right hydronephrosis. 3. Urinary tract infection. 4. Sepsis. PROCEDURE: 1. Cystoscopy. 2. Right ureteral stent placement. SURGEON: Gulshan Rodriguez MD AUTO BODY REPAIR TECHNICIAN: None. ANESTHESIA: General. ESTIMATED BLOOD LOSS: Less than 5 mL. SPECIMENS: Urine culture from right kidney. DRAINS: 22 cm x 6-Gabonese right ureteral double-J stent. COMPLICATIONS: None. CONDITION: Stable. FINDINGS: Cystoscopy revealed no bladder tumors, lesions or calculi, bilateral ureteral orifices in normal position (on trigone), and possible right ureteral orifice at right dome. Guidewire was passed into the right ureteral orifice on the trigone and was unable to be passed through the distal right ureter secondary to resistance in the right distal ureter. The guidewire was able to be passed into the right ureteral orifice at the right dome (from likely right ureteral reimplantation), up the right ureter and into the right renal pelvis. Cloudy urine was drained from the right renal collecting system. Right hydronephrosis was seen. Right ureteral stent was placed without difficulty. INDICATIONS: The patient is a 25-year-old female with a right ureteral calculus, right hydronephrosis, fever, UTI and sepsis. The patient now presents for cystoscopy and right ureteral stent placement. DESCRIPTION OF PROCEDURE: The patient was brought to the operating room and placed supine on the operating table. The patient has been on ceftriaxone IV antibiotics. General anesthesia was administered. The patient was brought down into the dorsal lithotomy position. The patient was prepped and draped in standard surgical fashion. A 22-Gabonese rigid cystoscope was placed through the urethra and into the bladder without difficulty. Cystoscopy revealed no bladder tumors, lesions or calculi, bilateral ureteral orifices in normal position (on trigone), and possible right ureteral orifice at right dome. An angle-tip UltraTrack guidewire was passed into the right ureteral orifice on the trigone. However, this guidewire was unable to be passed through the right distal ureter secondary to resistance in the right distal ureter. Then, the angle-tip UltraTrack guidewire was able to be passed into the right ureteral orifice at the right dome (from likely right ureteral reimplantation in the past) and the guidewire was able to be passed up the right ureter and into the right renal pelvis without difficulty. A 5-Gabonese open-ended catheter was passed over the guidewire, up the right ureter into the right renal pelvis. The guidewire was removed. Urine was drained from the right renal collecting system and this urine was seen to be cloudy and infected-appearing. Thus, cloudy urine was drained from the right renal collecting system. This urine was sent to the microbiology lab as urine culture from right kidney. After all of the urine was drained from the right renal collecting system, a small amount of contrast was instilled into the right renal collecting system via the open-ended catheter to illuminate the right renal collecting system to aid in stent placement. Right hydronephrosis was seen. The guidewire was passed through the open-ended catheter, up the right ureter into the right renal collecting system. The open-ended catheter was removed, leaving the guidewire in place. A 22 cm x 6-Gabonese ureteral double-J stent, with the stent string removed prior to stent placement, was passed over the guidewire and through the cystoscope, and passed up the right ureter and placed so that the proximal pigtail was located in the right renal pelvis and the distal pigtail was located in the bladder. The guidewire was removed. Correct positioning of the stent was confirmed both fluoroscopically and under direct visualization using the cystoscope. Good efflux of contrast could be seen draining from the distal end of the stent into the bladder, further confirming correct stent positioning. Thus, right ureteral stent was placed without difficulty. The bladder was drained via the cystoscope. Cystoscope was removed from the patient. The skin was cleaned and dried. The patient was placed in a supine position. The patient was awakened from general anesthesia and transferred to the recovery room in stable condition. The patient tolerated the procedure well. The plan is for the patient to be [place] [facility] [place] care of the hospitalist team when stable. Recommend continuing broad-spectrum IV antibiotics with ceftriaxone, continuing aggressive IV fluid resuscitation and following labs including white blood cell count, creatinine, electrolytes, urine culture and blood culture postoperatively. The case was discussed with hospitalist, Dr. Funes. After the patient is discharged from the hospital, the patient will need to follow up with me as an outpatient in approximately 2 to 2 1/2 weeks, with a KUB x-ray prior to the appointment. MIK
[2016-10-18] MEDS ORDERED: PHEN-684 PO (16:38)
[2016-10-18] MEDS ORDERED: FLUC100T4 PO (16:38)
[2016-10-18] MEDS ORDERED: OXYC1TAB24 PO (16:38)
[2016-10-18] MEDS ORDERED: PROM25TA14 PO (16:38)
== END 2016-09-04 15:50 | disposition home or self-care (01) | DRG 720 ==
LOC: SED 18:28 → MOC 23:24
PROVIDERS: ADMIT Internal Medicine; ATTEND Internal Medicine
PROC: 0TJB8ZZ Inspection of Bladder, Via Natural or Artificial Opening Endoscopic (ICD-10-PCS; 2016-09-02)
PROC: 0T768DZ Dilation of Right Ureter with Intraluminal Device, Via Natural or Artificial Opening Endoscopic (ICD-10-PCS; principal; 2016-09-02 11:15)
PROC: 7W03X1Z Osteopathic Treatment of Lumbar Region using Fascial Release (ICD-10-PCS; 2016-09-04)
DX: A41.9 Sepsis, unspecified organism (principal); N13.6 Pyonephrosis; N39.0 Urinary tract infection, site not specified; D69.2 Other nonthrombocytopenic purpura; E03.9 Hypothyroidism, unspecified; L98.2 Febrile neutrophilic dermatosis [Sweet]; F17.200 Nicotine dependence, unspecified, uncomplicated; E87.6 Hypokalemia; E83.51 Hypocalcemia; Z72.0 Tobacco use; B96.20 Unspecified Escherichia coli [E. coli] as the cause of diseases classified elsewhere; Z86.718 Personal history of other venous thrombosis and embolism; Z86.711 Personal history of pulmonary embolism

== ENCOUNTER 2016-09-30 14:25 | Emergency (ER) | payer OTHER ==
[~2016-09-30] VITALS: Ht 152.4 cm; Wt 75.0 kg
[~2016-09-30 14:25] MED LIST changes: +CALC500T53 PO; +CIPR-198 PO; -HYDR-4003 PO; +IBUP800T28 PO; +OXYB5TAB10 PO; +OXYC1TAB24 PO; +PHEN97.5 PO; -PRD5T PO; +TAMS0.4C98 PO; +ZOF8 PO
[2016-09-30 14:39] VITALS: BP 116/79; PULSE 93; RESP 15; O2SAT 97
--- NOTE | 2016-09-30 15:21 | ED.REPORT ---
HPI-Abd Pain F Under 40 Date of Service Sep 30, 2016 ED Provider: Branden Gan MD Patient is a 26 year old female who presents to the ED complaining of Urinary problems. She had a R kidney stent placed by Dr. Rodriguez earlier this month for a kidney stone but was unable to keep her urologist appointment 4 days ago. Associated symptoms include urinary frequency, dysuria, lower back pain (chronic ) and hematuria. She denies fever, vomiting, or any other symptoms. Nursing Notes Stated Complaint: BLOOD IN URINE/STENT R URETER Chief Complaint: Female Abdominal Pain Nursing Notes Reviewed: Yes Allergies: Coded Allergies: vancomycin (Verified Allergy, Intermediate, Rash,Itching,, 09/02/16) Scheduled Calcium Carbonate (Calcium Carbonate) 200 Mg Tab.chew 500 MG PO TIDWM Cephalexin (Cephalexin) 500 Mg Tablet 500 MG PO QID Ciprofloxacin (Ciprofloxacin) 500 Mg Tablet 500 MG PO BID Oxybutynin Chloride (Oxybutynin Chloride) 5 Mg Tablet 5 MG PO TID Tamsulosin (Flomax) 0.4 Mg Capsule 0.4 MG PO DAILY Scheduled PRN Ibuprofen (Ibuprofen) 800 Mg Tablet 800 MG PO TID PRN PRN For Pain Ondansetron (Zofran) 8 Mg Tablet 8 MG PO Q4H PRN PRN For Nausea Phenazopyridine (Azo Standard) 97.5 Mg Tablet 2 TAB PO TID PRN PRN PAIN WITH URINATION oxyCODONE-Acetaminophen 5-325 mg (oxyCODONE-Acetaminophen 5-325 mg) 1 Each Tablet 1-2 TAB PO Q6H PRN PRN For Pain General Time Seen by MD: 15:19 Chief Complaint Dysuria Hx Obtained From: Patient Arrived By: Walk-in Similar Sx Previous: No Past Medical History Past Medical History 1. 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 2. 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 4. On prior notes it is noted that the patient has a history of hypothyroidism, although the patient currently denies this diagnosis and said she is not on any thyroid replacement medication. 5. Status post hysterectomy. 6. Status post total colectomy with ileal pouch (as noted in the HPI). 7. History of exploratory laparotomy following intra-abdominal hemorrhage. Denies: Diabetes mellitus, Hypertension Denies: Renal insufficiency Past Surgical History as above Smoking History Current Every Day Smoker Social History Alcohol Use: Denies alcohol use Other Social History: Good social support, Local resident Ambulatory Status Independent Review of Systems Constitutional: Denies: Chills, Fever GI: Denies: Vomiting Female: Reports: Dysuria, Hematuria, Urinary frequency Musculoskeletal: Reports: Back pain (Chronic ), Denies: Myalgia Complete sys rev & neg: except as marked. Physical Exam Initial Vital Signs Vital Signs (First) Date Time Temp Pulse Resp B/P Pulse Ox O2 Delivery O2 Flow Rate FiO2 09/30/16 14:39 36.4 93 15 116/79 97 Room Air Initial VS: Reviewed Head / Eyes: Atraumatic, Normocephalic Skin: Warm, Dry Neurologic: Alert, Oriented, Nonfocal Psychiatric: Mood/affect normal, Behavior normal, Normal thought content General/Constitutional: Awake, Alert, Well appearing, Well developed Respiratory / Chest: Breath sounds NL, Breath sounds = bilat, No respiratory distress Cardiovascular: Heart rate NL, Regular rhythm, Heart sounds NL Abdomen: Soft, Non-tender Back: Inspection NL, No CVA tenderness Interpretation & Diagnostics Lab Results Interpretation Test 09/30/16 14:46 Hold Urine Received (Received) Re-Eval/Medical Decision Re-Evaluation/Progress : Time of Eval: 15:43 )( Re-Eval Abdomen: Soft Re-Evaluation/Progress Note: Discussed plan for discharge with abx per urologist instructions. Patient understands and agrees with plan. All questions addressed at this time. Consultation : Referral / Consult Name: Diana Heaton MD Call Returned at: 15:40 Candlemaking Laborer: Agrees with eval, Agrees with plan Note: Discussed patient's case with on-call urologist for Dr. Rodriguez. She suggests givign abx and discharging patient. Counseled Regarding: Diagnosis, Lab results, Need for follow-up, When/why to return to ED Discharge & Departure Primary Impression: UTI (urinary tract infection) Urinary tract infection type: acute cystitis Hematuria presence: with hematuria Qualified Code: N30.01 - Acute cystitis with hematuria Disposition: Home Discharge Condition All VS Reviewed: Yes Condition: Stable Patient Instructions: Urinary Tract Infection in Men (ED) Additional Instructions: Take the antibiotic (cephalexin) as prescribed 4 times daily for 3 days. A urine culture is pending. Ibuprofen 800 mg every 8 hours will be helpful for the pain. Follow-up with Dr. Rodriguez this coming week. Return to the emergency department immediately if you develop worsening symptoms, especially high fever or excessive vomiting. Referrals: Cale Boothe MD (PCP) Scribe Attestation Portions of this note were transcribed by Shira Collins. I, Dr. Gan personally performed the history, physical exam and medical decision-making; I reviewed and confirmed the accuracy of the information in the transcribed note. Signed by: Shira Collins 09/30/16, 1610 copies to: Gulshan Rodriguez MD; Cale Boothe MD, Kirk H MD Sep 30, 2016 15:21 SHIRA COLLINS Sep 30, 2016 15:28
[2016-09-30] MEDS ORDERED: CEPH500T PO (16:07)
[2016-10-18] MEDS ORDERED: FLUC100T4 PO (16:38)
[2016-10-18] MEDS ORDERED: OXYC1TAB24 PO (16:38)
[2016-10-18] MEDS ORDERED: PHEN-684 PO (16:38)
[2016-10-18] MEDS ORDERED: PROM25TA14 PO (16:38)
== END 2016-09-30 16:10 | disposition home or self-care (01) ==
LOC: SED 14:25
DX: N30.01 Acute cystitis with hematuria (principal); M54.5 Low back pain; G89.29 Other chronic pain; Z96.0 Presence of urogenital implants; F17.200 Nicotine dependence, unspecified, uncomplicated; Z87.442 Personal history of urinary calculi; Z86.718 Personal history of other venous thrombosis and embolism; Z86.711 Personal history of pulmonary embolism; Z90.710 Acquired absence of both cervix and uterus; Z93.2 Ileostomy status; Z88.1 Allergy status to other antibiotic agents

== ENCOUNTER 2016-10-19 09:06 | Day surgery (SDC) | payer OTHER ==
[~2016-10-19] VITALS: Ht 152.4 cm; Wt 75.8 kg
[2016-10-19] VITALS (7 sets, daily range): BP systolic 104–124; BP diastolic 60–88; PULSE 75–91; RESP 15–19; O2SAT 95–100
[~2016-10-19 09:06] MED LIST changes: -CALC500T53 PO; +FLUC100T4 PO; +Fluconazole Inj 200 MG in IV Premix 1 EACH IV ONE; +Heparin 5,000 Unit/mL Inj SUBQ ONE; -IBUP800T28 PO; +PHEN-684 PO; -PHEN97.5 PO; +PROM25TA14 PO; -TAMS0.4C98 PO; -ZOF8 PO; +cefTRIAXone 2,000 mg/D5W 50 mL IV Minibag Plus IV ONE
[2016-10-19] MEDS ORDERED: Propofol 10,000 mCg/mL 20 mL Inj ONE (09:07)
[2016-10-19] MEDS ORDERED: Dexamethasone 4 mg/mL Inj ONE (09:07)
[2016-10-19] MEDS ORDERED: CEFTAZIDIME 2000 MG ONE (09:07)
[2016-10-19] MEDS ORDERED: fentaNYL-PF 50 mCg/mL 2 mL Inj ONE (09:07)
[2016-10-19] MEDS ORDERED: FLUCONAZOLE 200 MG/100 ML IV ONE (09:07)
[2016-10-19] MEDS ORDERED: NS IV ONE (09:07)
[2016-10-19] MEDS ORDERED: MetoCLOpramide 5 mg/mL 2 mL Inj ONE (09:07)
[2016-10-19] MEDS ORDERED: Ondansetron 2 mg/mL 2 mL Inj ONE (09:07)
[2016-10-19] MEDS: Lactated Ringer's 1,000 ML IV SCH ×2 (09:15→10:54)
[2016-10-19 09:56] LABS: EOSINOPHILS % (AUTO) 2.6 % (0-5); MONOCYTES % (AUTO) 7.7 % (4-12); Mean Corpuscular Volume 88.2 fL (81-100); NEUTROPHILS % (AUTO) 44.5 % (40-74); Platelet Count 310 bil/L (150-400)
[2016-10-19 10:20] LABS: APPEARANCE,URINE CLOUDY (CLEAR,HAZY); COLOR,URINE DARK YELLOW (YELLOW)
[2016-10-19 10:21] LABS: OCCULT BLOOD,URINE LARGE (NEGATIVE); UROBILINOGEN,URINE NORMAL (NORMAL)
[2016-10-19] MEDS ORDERED: Lactated Ringer's 1,000 ML IV SCH (10:43)
[2016-10-19] MEDS ORDERED: Lactated Ringer's 500 ML IV PRN (10:43)
[2016-10-19] MEDS ORDERED: Ondansetron 2 mg/mL 2 mL Inj IVPUSH PRN (10:45)
[2016-10-19] MEDS ORDERED: fentaNYL-PF 50 mCg/mL 2 mL Inj IVPUSH PRN (10:45)
[2016-10-19] MEDS ORDERED: HYDROmorphone 1 mg/mL Inj IVPUSH PRN (10:45)
[2016-10-19] MEDS ORDERED: EPHEDrine Sulfate 50 mg/mL Inj IVPUSH PRN (10:45)
[2016-10-19] MEDS ORDERED: Dexamethasone 4 mg/mL Inj IVPUSH PRN (10:45)
[2016-10-19] MEDS ORDERED: Phenylephrine 10,000 mCg/mL Inj IVPUSH PRN (10:45)
[2016-10-19] MEDS ORDERED: MetoCLOpramide 5 mg/mL 2 mL Inj IVPUSH PRN (10:45)
--- NOTE | 2016-10-19 10:46 | PCM.HPANE ---
Patient Data Surgeon Admitting Provider: Attending Provider:Gulshan Rodriguez MD Primary Care Physician:Cale Boothe MD Other Provider:Dora Tipton Anesthesia Reason for Visit Right Kidney Stone Ht/WT & BMI Height (Feet): 5 Height (Inches): 0 Weight (Kilograms): 75.8 Body Mass Index 32.00 Allergies Coded Allergies: vancomycin (Verified Adverse Reaction, Severe, Rash,Itching,, 10/18/16) Past Anesthesia History Anesthesia History: Denies:: Anesthesia Reactions, Difficult Intubation, Fam Anesthesia Reaction, Malignant Hyperthermia Diabetes History Hx Diabetes?: No MRSA MRSA: No Medications Home Meds Incl Beta [place]: No Active Scripts Oxybutynin Chloride 5 Mg Tablet5 Mg PO TID #30 TABLET Ref 0 Prov:Henrietta Olmedo L DO 09/04/16 Ciprofloxacin 500 Mg [id number] Mg PO BID #20 TABLET Prov:Henrietta Olmedo L DO 09/04/16 Reported Medications Promethazine 25 Mg Djhryl65 Mg PO q4-6h PRN For Nausea Ref 0 10/18/16 Phenazopyridine (Pyridium)200 Mg [id number] Mg PO TID PRN For Pain Ref 0 10/18/16 oxyCODONE-Acetaminophen 5-325 mg 1 Each Tablet1-2 Tab PO Q4H PRN For Pain Ref 0 10/18/16 Fluconazole 100 Mg Mperum406 Mg PO BID Ref 0 x 14 days 10/18/16 Discontinued Scripts Cephalexin 500 Mg Lqendz713 Mg PO QID #12 TABLET Ref 0 Prov:Branden Gan MD 09/30/16 Ondansetron (Zofran)8 Mg Tablet8 Mg PO Q4H PRN For Nausea #30 TABLET Prov:Henrietta Olmedo L DO 09/04/16 Phenazopyridine (Azo Standard)97.5 Mg Tablet2 Tab PO TID PRN PAIN WITH URINATION #30 TABLET Prov:Henrietta Olmedo L DO 09/04/16 Calcium Carbonate 200 Mg Tab.odjk310 Mg PO TIDWM #30 TABLET Prov:Henrietta Olmedo L DO 09/04/16 Tamsulosin (Flomax)0.4 Mg Capsule0.4 Mg PO DAILY #10 CAPSULE Ref 0 Prov:Henrietta Olmedo L DO 09/04/16 oxyCODONE-Acetaminophen 5-325 mg 1 Each Tablet1-2 Tab PO Q6H PRN For Pain #20 TABLET Ref 0 Prov:Henrietta Olmedo DO 09/04/16 Ibuprofen 800 Mg Azcarr432 Mg PO TID PRN For Pain #30 TABLET Ref 0 Prov:Conrado Palacio DO 09/01/16 History History of ENT Problems?: No HEENT History: Denies:: Cataracts Difficult Intubation Dysphagia Hearing Problem Sinus Problem TMJ Hx of Heart Problems?: Yes Cardiovascular History: Positive for:: Cardiac Surgery (has IVC filter ) Heart Murmur (PT REPORTS MURMUR-NONE NOTED ON PREOP EXAM) Irregular Heartbeat (tachycardia) Thrombophlebitis (HX DVT/PE) Denies:: Chest Pain Congestive Heart Failure Edema Hypertension Pacemaker Hx of Respiratory Problem?: Yes Respiratory History: Positive for:: Pulmonary Embolism (S/P IVC FILTER) Denies:: Asthma COPD Chest Surgery Dyspnea Emphysema Hemoptysis Oxygen Administration Pneumonia Tuberculosis Use of C-PAP Machine (SNORES) Hx Neurologic Problems?: Yes Neurological History: Positive for:: Headaches (migraine) Denies:: Alzheimer's Disease CVA Dementia Dizziness Multiple Sclerosis Parkinson's Disease Seizures Hx of GI Problems?: Yes Gastrointestinal History: Denies:: Diverticulitis Gastroesphageal Reflux Gastrointestinal Bleeding Heartburn Hepatitis Hiatal Hernia Rectal Bleeding Other GI Pertinent History: S/P COLON RESECTION W/ ILEOSTOMY Hx of Problems?: Yes Genitourinary History: Positive for:: Kidney Stones (HX PRIOR STONES RT KIDNEY STONE=CURRENT PROBLEM S/P CYSTO/RT STENT) Urinary Tract Infection (RECENT UTI CURRENTLY ON CIPRO) Denies:: HX of Hemodialysis HX of Peritoneal Dialysis: No Other Pertinent History: C/OF FREQUENCY,URGENCY,HEMATURIA Female Hx: Denies:: Currently Endometriosis Pelvic Inflammatory Problems with Breasts? 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") Denies:: Pressure Ulcers Hx Musculoskeletal Problems?: No Musculoskeletal History: Denies:: Back Injury Joint Replacement Musculoskeletal Trauma Hx of Psycho/Social Problems?: Yes Psycho Social History: Positive for:: Anxiety Denies:: Bipolar Disorder Hx Depression Suicide Attempt Hx Surgeries?: Yes (colectomy- with ileal pouch, desmoid tumor resection- hysterectomy) Hx Any Other Health Problems?: Yes Other History: Positive for:: Hospitalization (Pain, tumor, , colectomy, N/V,surgeries ) Thyroid Disease (Hypothyroidism) Denies:: Cancer Endocrine Disease History Blood Transfusions: Positive for:: Blood Transfusions Denies:: Blood Transfuse Reaction Hx Diabetes: No Other Pertinent History: HX BEAN SYNDROME Hx Alcohol Use: Yes (weekend every other )Hx Substance Use: No Smoking Status: Current Every Day Smoker Have You Smoked inLast 12 mo: No Stop/Bang Treated for Sleep Apnea?: No Do You Have a CPAP Machine?: No S-Snoring: Do You Snore Loudly: Yes T-Tired: feel tired, fatigued: Yes O-Obsered: Observed not breath: No P-Blood Pressure: treated: No B- Body Mass Index > 35 kg/m2: No A- Age over 50: No N- Neck Large Circumference: No G- Gender Male: No LUÍS Total Score: 2 LUÍS Risk Assessment: Low Risk, <3 Yes Risk Assessment Category Category 1A: Patient has history of documented sleep apnea, and HAS NOT received any narcotic, sedative or anesthesia administration during this stay. Category 1B: Patient has history of documented sleep apnea, and HAS received any narcotic , sedative or anesthesia administration during this stay Category 2: Patient has SUSPECTED Obstructive Sleep Apnea, and HAS received any narcotic , sedative or anesthesia administration during this stay. Category 3: Patient has SUSPECTED Obstructive Sleep Apnea and HAS NOT received narcotic, sedative or anesthesia administration during this stay. Category 4: Outpatient in Procedural Areas with known sleep apnea or who screen positive for High Risk via the STOP/BANG questionnaire. Exam Exam Vital Signs Vital Signs Date Time Temp Pulse Resp B/P Pulse Ox O2 Delivery O2 Flow Rate FiO2 10/19/16 09:26 35.7 91 18 114/80 98 Room Air General Appearance: Oriented X3 HEENT/AIRWAY: MP 2 Lungs: Normal Air Movement Heart: Regular Rate/Rhythm Meds/Labs/Diagnostics Admission Meds Current Medications Lactated Ringer's (Lr) 1,000 ml @ 120 mls/hr Q8H20M IV Last administered on 09:15; Start 10/19/16 at 05:00; Stop 10/19/16 at 13:19 Heparin Sodium (Porcine) (Heparin Inj) 5,000 unit PREOP ONCE SUBQ Last administered on 10/19/16 10:07; Start 10/19/16 at 06:00; Stop 3/16/17 at 06:01 ; Status DC Labs Test 10/19/16 09:16 10/19/16 09:48 Urine Color Dark yellow (YELLOW) Urine Appearance Cloudy (CLEAR,HAZY) Urine pH 6.0 (5.0-8.0) Urine Specific [place] 1.030 (1.003-1.035) Urine Protein 100mg/dL (NEG,TRACE) Urine Glucose (UA) Negativemg/dL (NEGATIVE) Urine Ketones Negativemg/dL (NEGATIVE) Urine Occult Blood Large (NEGATIVE) Urine Nitrite Negative (NEGATIVE) Urine Bilirubin Negative (NEGATIVE) Urine Urobilinogen Normalmg/dL (NORMAL) Urine Leukocyte Esterase Small (NEGATIVE) Urine RBC >50/hpf (0-2) Urine WBC 11-50/hpf (0-5) Urine Epithelial Cells Occasional/hpf (NONE-MOD) Urine Crystals None seen (NONE SEEN) Urine Bacteria Moderate/hpf (NONE-FEW) Urine Hyaline Casts None/lpf (NONE) Urine Granular Casts None seen (NONE SEEN) Urine Waxy Casts None seen (NONE SEEN) Urine Red Blood Cell Casts None seen (NONE SEEN) Urine White Blood Cell Casts None seen (NONE SEEN) Urine Mucus None seen (None Seen) Urine Trichomonas None seen (NONE SEEN) Urine Yeast None (NONE SEEN) Urinalysis Comment None Urine Culture Reflexed Indicated White Blood Count 4.9th/mm3 (3.8-10.1) Red Blood Count 4.66mil/mm3 (3.90-5.20) Hemoglobin 14.0g/dL (12.0-15.6) Hematocrit 41.1% (35.0-46.0) Mean Corpuscular Volume 88.2fL (81-100) Mean Corpuscular Hemoglobin 30.0pg (27.0-35.0) Mean Corpuscular Hemoglobin Concent 34.1% (32.0-37.0) Red Cell Distribution Width 12.1% (12.3-15.4) Platelet Count 310bil/L (150-400) Neutrophils (%) (Auto) 44.5% (40-74) Lymphocytes (%) (Auto) 43.8% (14-46) Monocytes (%) (Auto) 7.7% (4-12) Eosinophils (%) (Auto) 2.6% (0-5) Basophils (%) (Auto) 1.0% (0-3) Plan Impression Patient chart reviewed, patient interviewed and anesthestic plan with risks, benefits, and alternatives discussed, and informed consent obtained. NPO Status: 10/18/16 ASA Physical Status: ASA2 Mod Systemic Disease Anesthetic Plan: GA Bene/Risks/Altern/Consents: Yes HP Complete Prior to Induction: Yes Dmitri العلي MD Oct 19, 2016 10:46
[2016-10-19] MEDS ORDERED: Belladonna Alk-Opium 60 mg Rectal Suppository RECTAL ONE ×2 (12:25→12:29)
--- NOTE | 2016-10-19 12:59 | PCM.SURGPO ---
Immediate Operative Note Date of Surgery: Oct 19, 2016 Pre Operative Diagnosis R renal calculus Post Operative Diagnosis R renal calculus Procedure Cystoscopy, R ureteroscopy, Holmium laser lithotripsy, basket extraction of calculus fragments, R ureteral stent removal, and R ureteral stent placement Surgeon and Chaser Helper Surgeon: Gulshan Rodriguez MD Assistants: None Findings R semi-rigid ureteroscopy revealed no calculi in R distal or mid ureter. A 12/ 14F x 35cm ureteral access sheath was placed in R ureter. R flexible ureteroscopy revealed no calculi in R proximal ureter and an approx. 8mm R lower pole renal calculus. Holmium laser lithotripsy and basket extraction of calculus fragments were performed. R ureteral stent was changed to a new stent. Complications There were no periprocedural complications identified. Surgical Specimen Removed: Yes Specimen sent to Pathology: No Surgical Specimen description: R renal calculus fragments sent to lab for stone analysis Anesthetic Administered: GA Grafts, Implants: Other (22cm x 5F R ureteral JJ stent (no string)) Output, Estimated Blood Loss: <5 Blood Admin during surgery: No Additional information Patient to return to see me in 7-8 days for cystoscopy, stent removal, and post- op visit. Gulshan Rodriguez MD Oct 19, 2016 12:59
--- NOTE | 2016-10-19 13:11 | PCM.DISURG ---
Surgical Discharge Instruction Date of Service Oct 19, 2016 Dates of Hospitalization Date of Hospital Admission Oct 19, 2016 Providers Admitting Physician: Gulshan Rodriguez MD Primary Care Physician: Cale Boothe MD Attending Physician: Gulshan Rodriguez MD Discharge Diagnosis Discharge Diagnosis R renal calculus Post Operative diagnosis R renal calculus Diet Discharge Diet: No restrictions, Other (Drink at least 10-12 8oz. glasses (3 liters) of fluids per day) Activity Discharge Activity-General: No restrictions, No driving while taking narcotic Dressing and Incisional Care Hygiene: May shower Follow Up Plan Follow-up Provider (F9): Gulshan Rodriguez MD Follow-up appointment: Days (7-8 days for cystoscopy, stent removal, and post- op visit) Call your provider for: Fever, Chills, Vomiting, Other (Pain uncontrolled by pain medications) Gulshan Rodriguez MD Oct 19, 2016 13:11
[2016-10-19] MEDS ORDERED: oxyCODONE-Acetamin 5-325 mg Tablet PO PRN (13:20)
--- NOTE | 2016-10-19 14:46 | PCM.ANEP1 ---
Post Anesthesia Phase 1 PACU Phase 1 Assessment Date of Service: Oct 19, 2016 Vital Signs Vital Signs Date Time Temp Pulse Resp B/P Pulse Ox O2 Delivery O2 Flow Rate FiO2 10/19/16 13:05 87 19 123/85 95 Room Air 10/19/16 13:00 37.0 84 18 124/88 96 Room Air 10/19/16 12:55 86 18 122/83 100 Room Air 10/19/16 12:50 75 15 104/68 100 Simple Mask 10 10/19/16 12:45 75 16 115/74 99 Simple Mask 10 10/19/16 12:40 36.6 77 17 114/60 99 Simple Mask 10 10/19/16 09:26 35.7 91 18 114/80 98 Room Air Anesthetic Administered: GA Level of Alertness: Awake, talking Pain: No Nausea or Vomiting: No Oxygen Delivery: Room Air Lungs: Normal Air Movement Dmitri العلي MD Oct 19, 2016 14:46
--- NOTE | 2016-10-19 14:46 | PCM.ANEP2 ---
Post Anesthesia Evaluation ASA/CMS Post Anesthesia VS in Patient's Normal Range?: Yes Resp Stable; Airway Patent?: Yes CV Function & Hydration Stable: Yes Mental Status Recovered?: Yes Pain control Satisfactory?: Yes N/V Control Satisfactory?: Yes Dmitri العلي MD Oct 19, 2016 14:46
--- NOTE | 2016-10-20 14:44 | OP ---
[address] [address] OPERATIVE REPORT PATIENT: GORGE ACEVEDO : 1990 MR#: [id number] ADMIT: 10/19/2016 JOB ID: [id number] DATE OF SURGERY: 10/19/2016 PREOPERATIVE DIAGNOSIS(ES): Right renal calculus. POSTOPERATIVE DIAGNOSIS(ES): Right renal calculus. PROCEDURE: 1. Cystoscopy. 2. Right ureteroscopy. 3. Holmium laser lithotripsy. 4. Basket extraction of calculus fragments. 5. Right ureteral stent removal. 6. Right ureteral stent placement. SURGEON: Gulshan Rodriguez MD. BED OPERATOR: None. ANESTHESIA: General. ESTIMATED BLOOD LOSS: Less than 5 mL. SPECIMENS: Right renal calculus fragments sent to the lab for stone analysis. DRAINS: A 22 cm x 5-Armenian right ureteral double-J stent. COMPLICATIONS: None. CONDITION: Stable. FINDINGS: Right semi-rigid ureteroscopy revealed no calculi in right distal or right mid ureter. A 12/14-Armenian by 35 cm ureteral access sheath was placed in the right ureter. Right flexible ureteroscopy revealed no calculi in right proximal ureter and an approximately 8 mm right lower pole renal calculus. Holmium laser lithotripsy and basket extraction of calculus fragments were performed. Right ureteral stent was changed to a new stent. INDICATIONS: The patient is a 26-year-old female, status post cystoscopy and right ureteral stent placement on September 02, 2016 for obstructing right ureteral calculus, right hydronephrosis, UTI and sepsis, status post completion of antibiotics, with KUB on October 04, 2016, showing an approximately 7-8 mm right lower pole renal calculus and no ureteral calculi. The patient now presents for cystoscopy, right ureteroscopy, holmium laser lithotripsy, possible basket extraction of calculus fragments and right ureteral stent change. DESCRIPTION OF PROCEDURE: The patient was brought to the operating room and placed supine on the operating room table. The patient was given ceftriaxone and Diflucan IV antibiotics. The patient also was given heparin subcutaneously for her history of DVT. This was given preoperatively. General anesthesia was administered. The patient was brought down into dorsal lithotomy position. The patient was prepped and draped in a standard surgical fashion. A 22-Armenian rigid cystoscope was placed into the urethra without difficulty. Urethra was seen to be normal. Cystoscopy revealed no bladder tumors, lesions, or calculi, bilateral ureteral orifices in normal position on the trigone, and right ureteral orifice at the right dome (from likely right ureteral reimplantation in the past), with the distal end of the right ureteral stent seen emerging from the right ureteral orifice at the right dome. The distal end of the stent was grasped with cystoscopic grasper and brought out to the urethral meatus. A PTFE guidewire was passed through the old stent, up the right ureter, into the right renal pelvis. The old stent was removed and discarded in its entirety. The PTFE guidewire was then secured to the drape with a Nikki clamp as a safety wire. A semi-rigid ureteroscope was advanced through the urethra and bladder and into the right ureteral orifice at the right dome with the assistance of a straight tip UltraTrack guidewire. Right semi-rigid ureteroscopy revealed no calculi in right distal or right mid ureter. The straight tip UltraTrack guidewire was advanced up the right ureter into right renal pelvis. The semi-rigid ureteroscope was removed from the patient. The UltraTrack guidewire was secured to the drape with a Nikki clamp as a safety wire. A 12/14-Armenian by 35 cm ureteral access sheath was passed over the PTFE guidewire through the urethra and bladder and up the right ureter into the right mid ureter. The inner portion of the sheath and PTFE guidewire were removed. A flexible ureteroscope was advanced through the ureteral access sheath, and right flexible ureteroscopy revealed no calculi in right proximal ureter and an approximately 8 mm right lower pole renal calculus. Holmium laser lithotripsy of the calculus was performed using a 200 micron holmium laser fiber, fragmenting the calculus into small fragments. Basket extraction of all significant 2 mm or larger calculus fragments was performed using a 2.2-Armenian NCircle Nitinol basket. The calculus fragments were sent to the lab for stone analysis. The right renal pelvis and all calyces were visualized. No significant 2 mm or larger calculus fragments were seen. A small amount of contrast was instilled into the right renal collecting system to illuminate the right renal collecting system to aid in stent placement. The flexible ureteroscope and ureteral access sheath were backed down the right ureter, and the entire right ureter was visualized. No significant 2 mm or larger calculus fragments were seen. The ureteral access sheath and flexible ureteroscope were removed from the patient. The rigid cystoscope was passed over the safety guidewire through the urethra and into the bladder. A 22 cm x 5-Armenian ureteral double-J stent, with the stent string removed prior to stent placement, was passed over the guidewire, through the cystoscope, and passed up the right ureter and placed so that the proximal pigtail was located in the right renal pelvis and the distal pigtail was located in the bladder. The guidewire was removed. Correct positioning of the stent was confirmed both fluoroscopically and under direct visualization using cystoscope. Good efflux of contrast could be seen draining from the distal end of the stent into the bladder further confirming correct stent positioning. Thus, right ureteral stent was changed to a new stent. The bladder was drained via the cystoscope. The cystoscope was removed from the patient. Skin was cleaned and dried. The patient was placed in a supine position. The patient was awakened from general anesthesia and transferred to the recovery room in stable condition. The patient tolerated the procedure well. PLAN: Plan is for the patient to return to see me in the office in 7-8 days for cystoscopy, stent removal and postop visit. MIK
[2016-10-25 11:08] LABS: Stone Color Tan (.)
== END 2016-10-19 23:59 | disposition home or self-care (01) ==
LOC: SAS 09:06
PROVIDERS: ATTEND Urology
DX: N20.0 Calculus of kidney (principal); E03.9 Hypothyroidism, unspecified; F41.9 Anxiety disorder, unspecified; F17.210 Nicotine dependence, cigarettes, uncomplicated; Z86.718 Personal history of other venous thrombosis and embolism; Z85.038 Personal history of other malignant neoplasm of large intestine; Z87.440 Personal history of urinary (tract) infections; Z86.711 Personal history of pulmonary embolism; Z93.2 Ileostomy status
CPT/HCPCS: 36415; 52356; 74420; 80048; 81000; 82360; 85025; 87086; 87088; C2617; J0696; J0713; J1100; J1450; J1644; J2405; J2765; J3010; J7120; Q9967